=== PATIENT | female | born 1975 | race Caucasian/White ===

== ENCOUNTER 2018-03-07 11:48 | Emergency (ER) | payer OTHER ==
[2018-03-07 11:57] VITALS: BP 135/87
--- NOTE | 2018-03-07 12:27 | ED ---
ENT HPI - General Chief complaint: ENT Stated complaint: Foaming in the mouth Time Seen by Provider: 03/07/18 11:59 Source: patient, RN notes reviewed Mode of arrival: ambulatory Limitations: no limitations - History of Present Illness Initial comments: This is a 42-year-old female who presents to the emergency department with chief complaint of foaming in the mouth. Patient states that she attempted to use hydrogen peroxide [id number] as a mouthwash. She states that she used it only one time this morning. She states that she is concerned because there is now some foam in her mouth that she is unable to get rid of. She denies drinking any hydrogen peroxide. She states she is concerned because the [employer] video said to mix it with baking soda and she forgot to do so. Denies any recent illnesses. Denies fevers or chills, chest pain or shortness of breath, abdominal pain, nausea or vomiting, diarrhea or constipation, headache or dizziness. - Related Data Allergies Allergy/AdvReac Type Severity Reaction Status Date / Time No Known Allergies Allergy Verified 03/07/18 11:56 Review of Systems ROS Statement: Those systems with pertinent positive or pertinent negative responses have been documented in the HPI. ROS Other: All systems not noted in ROS Statement are negative. Past Medical History Past Medical History: No Reported History History of Any Multi-Drug Resistant Organisms: None Reported Past Surgical History: No Surgical Hx Reported Past Psychological History: Bipolar Smoking Status: Current every day smoker Past Alcohol Use History: None Reported Past Drug Use History: None Reported General Exam - General Exam Comments Initial Comments: General: Awake and alert, well-developed; in no apparent distress. HEENT: Head atraumatic, normocephalic. Pupils are equal, round and reactive to light. Extraocular movements intact. Oropharynx moist without erythema or exudate. Small amount of white foam within the mouth. Neck: Supple. Normal ROM. Cardiovascular: Regular rate and rhythm. No murmurs, rubs or gallops. Chest symmetrical. Respiratory: Lungs clear to auscultation bilaterally. No wheezes, rales or rhonchi. Normal respiratory effort with no use of accessory muscles. Musculoskeletal: Normal ROM, no tenderness bilateral upper and lower extremities. Ambulating normally. Skin: [place], warm and dry without rashes or lesions. Neurological: Alert and oriented x3. CN II-XII grossly intact. Speech is fluent and answers are appropriate. No focal neuro deficits. Limitations: no limitations Course Vital Signs 03/07/18 03/07/18 11:52 12:26 Temperature 100.2 F H 98.5 F Pulse Rate 104 H 82 Respiratory 18 16 Rate Blood Pressure 135/87 O2 Sat by Pulse 96 98 Oximetry Medical Decision Making - Medical Decision Making This is a 42-year-old female who presents to the emergency department with chief complaint of foaming in the mouth. Patient used hydrogen peroxide as mouthwash one time this morning. I explained to patient that this is normal for hydrogen peroxide as the foaming is caused by oxygen. Explained to patient that drinking some water or milk may help decrease the foaming. Patient was agreeable with this plan. Vital signs are stable and she is in no acute distress. She'll be discharged home at this time. All questions answered. Disposition Clinical Impression: Adverse effect of mouthwash Disposition: HOME SELF-CARE Condition: Good Instructions: Hydrogen Peroxide (By mouth) Additional Instructions: Please drink water or milk to help with the foaming. Please follow up with primary care provider within 1-2 days. Return to emergency department if symptoms should worsen or any concerns arise. Is patient prescribed a controlled substance at d/c from ED?: No Referrals: Mariam Segovia MD [Primary Care Provider] - 1-2 days Time of Disposition: 12:15
[2018-03-07 12:32] VITALS: PULSE 82; RESP 16; TEMP 98.5
== END 2018-03-07 12:38 | disposition home or self-care (01) ==
LOC: EC 11:48
DX: K11.7 Disturbances of salivary secretion (principal); T49.0X5A Adverse effect of local antifungal, anti-infective and anti-inflammatory drugs, initial encounter; F17.200 Nicotine dependence, unspecified, uncomplicated
CPT/HCPCS: 99283

== ENCOUNTER 2021-03-13 11:12 | Emergency (ER) | payer OTHER ==
--- NOTE | 2021-03-13 11:35 | ED ---
Lower Extremity Injury HPI - General Chief Complaint: Extremity Injury, Lower Stated Complaint: ankle injury Time Seen by Provider: 03/13/21 11:21 Source: patient, RN notes reviewed Mode of arrival: ambulatory Limitations: no limitations - History of Present Illness Initial Comments: 45-year-old female presents to the emergency Department with chief complaint left ankle injury. Patient states that she rolled her ankle yesterday was diagnosed with acute fracture. Patient states that she was seen at [facility]. Patient called the was takes provided and they told her that she could be seen in 3 weeks. Patient states that she needs to be seen sooner she did talk to office of Dr. Llanos is recommended come emergency dept here for evaluation and referral. Patient denies any paresthesias no other complaints. - Related Data Allergies Allergy/AdvReac Type Severity Reaction Status Date / Time No Known Allergies Allergy Verified 03/13/21 11:18 Review of Systems ROS Statement: Those systems with pertinent positive or pertinent negative responses have been documented in the HPI. ROS Other: All systems not noted in ROS Statement are negative. Past Medical History Past Medical History: No Reported History History of Any Multi-Drug Resistant Organisms: None Reported Past Surgical History: No Surgical Hx Reported Past Psychological History: Bipolar Smoking Status: Current every day smoker Past Alcohol Use History: None Reported Past Drug Use History: None Reported General Exam Limitations: no limitations General appearance: alert, in no apparent distress Neck exam: Present: normal inspection. Absent: tenderness Respiratory exam: Present: normal lung sounds bilaterally. Absent: respiratory distress, wheezes, rales, rhonchi, stridor Cardiovascular Exam: Present: regular rate, normal rhythm, normal heart sounds. Absent: systolic murmur, diastolic murmur, rubs, gallop, clicks Extremities exam: Present: other (left leg is wrapped in an OCL splint, told her exposed neurovascular intact I did unwrap the splint as she reportedly was tight, feels improved, tenderness the malleoli region) Course Vital Signs 03/13/21 11:15 Temperature 97.4 F L Pulse Rate 88 Respiratory 20 Rate Blood Pressure 161/87 O2 Sat by Pulse 99 Oximetry Medical Decision Making - Medical Decision Making X-rays review shows acute fracture. Patient will be referred to on-call orthopedics. Case discussed with neck on-call for orthopedics recommends CT nonweightbearing remain in splint and will follow-up tomorrow. Disposition Clinical Impression: Closed left trimalleolar fracture Disposition: HOME SELF-CARE Condition: Stable Instructions (If sedation given, give patient instructions): Ankle Fracture (ED) Additional Instructions: Please remain nonweightbearing and use crutches as directed.Please return to the Emergency Department if symptoms worsen or any other concerns. Is patient prescribed a controlled substance at d/c from ED?: No Referrals: Nonstaff,Physician [REFERRING] - 1-2 days Arden Mandel DO [Doctor of Osteopathic Medicine] - 1-2 days Time of Disposition: 12:33
--- NOTE | 2021-03-13 12:19 | XR ---
EXAMINATION TYPE: XR ankle complete LT DATE OF EXAM: 03/13/2021 COMPARISON: None HISTORY: Fracture TECHNIQUE: 3 view left ankle FINDINGS: Images are obtained through fiberglass and alignment. Ankle mortise is visualized appears intact. There is diastases of a medial malleolar fracture. The la teral fibular fracture appears comminuted. Posterior tibial fracture appears to be present with exten mike to the articular surface. Findings are compatible with a trimalleolar fracture. IMPRESSION: 1. Appears to be a trimalleolar fracture of the left ankle obtained through a fiberglass splint.
--- NOTE | 2021-03-13 13:16 | CT ---
EXAMINATION TYPE: CT ankle LT wo con DATE OF EXAM: 03/13/2021 COMPARISON: X-ray 03/13/2021 HISTORY: PT STATES SHE ROLLED HER ANKLE CT DLP: 237.5 mGycm Automated exposure control for dose reduction was used. CONTRAST: CT scan of the ankle FINDINGS- There is a comminuted displaced fracture of the distal fibula, medial malleolus are fractured, and co mminuted intra-articular fracture of the posterior malleolus and tibia. Slight asymmetry the ankle mo rtise noted. Visualized remaining osseous structures intact. Tiny cyst involving the dome of the talu s can be associated with osteochondritis. Soft tissue hematoma or edema noted. Ligamentous or tendino us injuries not excluded by CAT scan. IMPRESSION- 1. Comminuted trimalleolar fracture or articular of the ankle extensive soft tissue edema or hematoma . 2. Possible osteochondritis of the talar dome.
[2021-03-13 13:27] VITALS: RESP 18
[2021-03-13 13:44] VITALS: BP 139/74; PULSE 76; TEMP 98.4
== END 2021-03-13 13:44 | disposition home or self-care (01) ==
LOC: EC 11:12
DX: S82.852A Displaced trimalleolar fracture of left lower leg, initial encounter for closed fracture (principal); F17.200 Nicotine dependence, unspecified, uncomplicated; X50.1XXA Overexertion from prolonged static or awkward postures, initial encounter
CPT/HCPCS: 99284

== ENCOUNTER → 2021-03-17 | Outpatient (CLI) | payer OTHER ==
[2021-03-17 14:10] LABS: Anisocytosis Moderate; Basophils % (A) 0 %; Eosinophils % (A) 0 %; HCT 36.4 % (34.0-46.0); HGB 11.7 gm/dL (11.4-16.0); Hypochromasia Slight; Lymphocytes # (A) 1.3 k/uL (1.0-4.8); Lymphocytes % (A) 18 %; MCH 23.9 pg (25.0-35.0); MCHC 32.1 g/dL (31.0-37.0); MCV 74.4 fL (80.0-100.0); Mean Platelet Volume 8.8; Microcytosis Marked; Monocytes # (A) 0.3 k/uL (0-1.0); Monocytes % (A) 4 %; Neutrophils # (A) 5.4 k/uL (1.3-7.7); Neutrophils % (A) 76 %; Platelet Count 265 k/uL (150-450); RDW 21.3 % (11.5-15.5); WBC 7.2 k/uL (3.8-10.6)
== END | disposition home or self-care (01) ==
LOC: LABPAT 13:05
PROVIDERS: ATTEND Orthopaedic Surgery
DX: Z01.812 Encounter for preprocedural laboratory examination (principal)
CPT/HCPCS: 36415; 85025

== ENCOUNTER → 2021-03-28 | Day surgery (SDC) | payer OTHER ==
[2021-03-24 09:05] VITALS: BMI 35.3
[~2021-03-28] MED LIST: ACETAMINOPHEN TAB 500 MG TAB PO PRN; DEXAMETHASONE SOD PHOSPHATE 4 MG/ML 1 ML VIAL IV ONE; DEXAMETHASONE SOD PHOSPHATE 4 MG/ML 1 ML VIAL IVP ONE; DEXAMETHASONE SOD PHOSPHATE 4 MG/ML 1 ML VIAL ONE; HYDROcodone/APAP 5-325MG 1 EACH TAB ONE; HYDROcodone/APAP 5-325MG 1 EACH TAB PO ONE; HYDROmorphone (PF) 1 MG/ML ONE; HYDROmorphone 0.5 MG/0.5 ML SYRINGE IVP PRN; LACTATED RINGERS 1,000 ML IV ONE; LACTATED RINGERS 1,000 ML IV SCH; LIDOCAINE 1% (10MG/ML) FOR IV START INTRADERMA PRN; LIDOCAINE 1% INJ 10MG/ML (20 ML MDV) ONE; MIDAZOLAM 2 MG/2 ML VIAL IV PRN; MIDAZOLAM 2 MG/2 ML VIAL IVP ONE; MIDAZOLAM 2 MG/2 ML VIAL ONE; ONDANSETRON 4 MG/2 ML VIAL IVP PRN; PROPOFOL 10 MG/ML 20 ML VIAL IV ONE; ROPIVACAINE 5 MG/ML 30 ML VIAL ONE; SCOPOLAMINE 1.5MG/72HR PATCH TRANSDERM ONE; SUCCINYLCHOLINE CHLORIDE 100 MG/5 ML SYR IV ONE; ceFAZolin 1,000 MG in SODIUM CHLORIDE 0.9% 1,000 ML IRRIGATION ONE; fentaNYL (PF) 50 MCG/ML 2 ML AMP ONE
--- NOTE | 2021-03-28 07:05 | P.HPOR ---
History of Present Illness H&P Date: 03/28/21 Chief Complaint: AnkleFx [facility] History and Physical CC: I fell and broke her ankle HPI: 45-year-old female tripped getting out of her car causing fracture to her left ankle. She lives with her family at home and her significant olther in the room with her. She has had difficulty with crutches and so has been in a wheel chair and they are living in a hotel right now. She states pain in her L ankle. Swelling about her left ankle. Denies any numbness/tingling. Denies any f/c/sob/cp at this time. The patient's past medical history; past surgical history; family history; medicines; allergies and social history have been reviewed and are as stated elsewhere in the chart. 14 points review of systems completed and as stated in HPI, all other systems reviewed are negative. PHYSICAL EXAM: Patient is alert and oriented 3 appears well-nourished well-hydrated is in no acute distress. They does not appear septic. On exam the patient has no tenderness to palpation of her thoracic or lumbar spine. There is no edema or ballottement sign. Lower extremities with 5 out of 5 strength in all major muscle groups Upper extremities show 5/5 strength in all major muscle groups. There is FROM that is painless of the b/l UE and LE in all major joints. They are intact to light touch sensation in L2 to S1 nerve distribution. Patient has palpable dorsalis pedis was posterior tibial pulses. Compartments are soft and compressible. Patient shows a negative Homans, Ovalle's, negative Babinski's negative clonus bilaterally. negative straight leg raise bilaterally. No tensioning signs. Cranial nerves II through XII are grossly intact. Overall alignment is well-maintained in the sagittal coronal planes. left foot and ankle show a large amount of ecchymosis as well as swelling around the ankle and foot. There is no wrinkle sign at this time. There is tenderness to palpation around the medial lateral and posterior aspect of the ankle range of motion is limited secondary to the fracture. Palpable pulses and compartments are soft and compressive RADIOGRAPHS: ankle films demonstrate a trimalleolar fracture with comminuted Leo B type fracture of the lateral malleolus transverse medial malleolar fracture and a posterior malleolar fracture that is approximately 15-20% of the posterior malleolus. [place] stress view fails to demonstrate any medial clear space widening or tib-fib overlap decrease. No other obvious osseous abnormalities ASSESSMENT: 1. left ankle trimalleolar fracture PLAN: - we will schedule her for an ORIF of her left ankle Surgical Procedure Risk Review Lary Pagan is a 45 year old female presenting for evaluation of sudden onset of left ankle pain. It was my pleasure to have seen and examined Ms. Pagan. In our visit today we have had a chance to go over subjective complaints, physical examination findings and treatments, including the natural course history without intervention and various interventional options. The imaging demonstrates trimalleolar fracture, displaced, closed . On physical exam, Ms. Pagan demonstrates pain and swelling with ecchymosis of the left ankle . I explained to the patient that as her condition progresses it could cause continued pain and inability ambulate . At this time, based on the patients imaging and physical exam, I recommend surgery in the form or a: ORIF L ankle . I discussed the risk and benefits of this procedure at length with Ms. Pagan. The patient agreed to consider pursuing the procedure mentioned above. Plan: 1. Open reduction and internal fixation of the Left ankle fracture 2. Follow up with PCP for surgical clearance 3. Review of surgical risks and benefits as well as an educational packet on the proposed surgical procedure. Risks: All surgical procedures come with inherent risks, including those related to positioning, anesthesia, intraoperative findings, and postoperative complications. It is important to understand that surgery does not come with any guarantee of a successful outcome as complications and adverse events are always possible. The patient was given a handout in office today discussing the surgical procedure and risks associated with the intervention, both of which were discussed with the patient. These risks include but are not limited to the following: ? Experiencing same, different or even worse symptoms in back, neck, arms, or legs compared to before surgery. ? Requiring further surgery or other forms of treatment presently or at some time in the future at same or other levels of the intended spine surgery. ? On an extreme but fortunately relatively rare basis severe complication such as blindness, stroke, heart attack, temporary and/or permanent nerve injury, paralysis, coma, or may occur, sometimes without known explanation. ? Surgical complications may include but are not limited to risk of infection, fluid accumulation in the surgical dissection site, including a seroma or hematoma, that requires additional surgery, wound drainage, bleeding, new numbness or weakness, vision changes/loss, spinal fluid leakage, non-healing and/or infected incision, headaches, difficulty or inability to swallow, hoarseness, hemopneumothorax, pneumothorax, impotence, retrograde ejaculation, vaginal dryness; injury to nerves, spinal cord, blood vessels, lymphatics or other vital organs (i.e., bowel injury, injury to the great vessels); heterotopic bone formation; complications related to the hardware such as screws, rods, cages including misplaced hardware, device failure, instrumentation at the wrong spine level, hardware fracture/breakage, or hardware loosening; vertebral failure of the spinal column above or below the newly placed hardware; retained surgical instrumentations or devices and the need for further surgery. ? Medical risks of the planned spine surgery include but are not limited to generalized Infections to the whole body or local areas outside of the surgical site (sepsis), heart attack, bleeding, anaphylaxis, meningitis, seizure, epilepsy, hearing loss, burn eastman, laceration of the head or other areas of the body, bruising, hypersensitivity of the skin, bladder over distension; allergic reaction; shoulder injury related to positioning; fat, blood and air clots to other areas of the body like heart, lungs, brain; failure of internal organs such as lungs, kidneys, liver and excessive bleeding. If blood transfusions are necessary, note that transfusions may cause intolerance reactions such as anaphylaxis or other complex reactions. Despite best efforts, the results of spine surgery might not heal in terms of bone, soft tissues such as skin, fascia, ligaments, and joints. Additionally, in order to achieve best possible results, spine surgery may be carried out beyond the initially planned levels and involve decompression, fusion including insertion of hardware at levels other than the original intended area of surgical interest change some portions of the procedure in order to ensure the best possible outcomes. With spine surgery and spinal fusion, there are different off label uses of instrumentation (devices, implants and hardware) as well as biological substances (bone morphogenic proteins, demineralized bone matrix) as well as using extra bone from allograft sources (i.e. cadaver bone) or autograft (iliac crest bone, ribs, or the spine itself). The patient has been given information about these practices and their inherent risks and benefits. [facility] Physician Assistants are medically trained surgical providers who function in the outpatient, inpatient, and operating room setting under the direct supervision of the attending surgeon.They assist in the operating room with direct supervision of the attending surgeons. The patient has had a chance to review all the listed information, has been given print outs detailing this information, and has had all his/her questions answered to their satisfaction. It was my pleasure to have seen and examined Ms. Pagan. In our visit today we have had a chance to go over my understanding of our patient's current condition, the natural course history without intervention and various interventional options. Questions were invited and answered, and the patient wishes to proceed as outlined above. I have seen and examined the patient for 25 minutes and we have spent more than 50% of the time in repeat and detailed counseling about the patient's condition, its natural course history with out and as much as can be predicted with surgery and re-review of various surgical treatment options. In conclusion,Ms. Paagn and her spouse/partner requested we proceed with the above suggested surgery and are willing to accept risks and limitations of the suggested surgery as nature of the disease process and our best attempts at treatment for the condition. Thank you again for allowing us to be part of your patient's care. Please don't hesitate to contact me if you have any further questions. Signed and authenticated by: Arden Stacy [facility] [address] [place] [address] Past Medical History Past Medical History: No Reported History History of Any Multi-Drug Resistant Organisms: None Reported Past Surgical History: No Surgical Hx Reported Additional Past Surgical History / Comment(s): Lymph node biopsy. Past Anesthesia/Blood Transfusion Reactions: No Reported Reaction Past Psychological History: Schizophrenia Smoking Status: Current every day smoker Past Alcohol Use History: Rare Additional Past Alcohol Use History / Comment(s): Smokes 1/2 PPD X last 20 yrs. Past Drug Use History: Marijuana Additional Drug Use History / Comment(s): "Hasn't used marijuana in quite awhile." - Past Family History Mother Family Medical History: No Reported History Medications and Allergies Home Medications Medication Instructions Recorded Confirmed Type HYDROcodone/APAP 5-325MG [[place] [employer] 1 tab PO DIRECTED PRN 03/24/21 03/28/21 History 5-325] Allergies Allergy/AdvReac Type Severity Reaction Status Date / Time No Known Allergies Allergy Verified 03/28/21 07:00 Physical Examination Osteopathic Statement: *. No significant issues noted on an osteopathic structural exam other than those noted in the History and Physical/Consult.
--- NOTE | 2021-03-28 09:35 | XR ---
EXAMINATION TYPE: XR ankle limited LT DATE OF EXAM: 03/28/2021 CLINICAL HISTORY: ORIF left ankle TECHNIQUE: 11 fluoroscopic spot images of the left ankle were submitted for review. 55 seconds of flu oroscopy time was reported. COMPARISON: 03/13/2021 FINDINGS: Fibular and medial malleolar hardware are noted. For full details please see the surgical report. IMPRESSION: Fibular and medial malleolar hardware are noted. For full details please see the surgical report.
[2021-03-28 10:06] VITALS: TEMP 98
--- NOTE | 2021-03-28 10:10 | FL ---
Fluoroscopy INDICATION: Pain FINDINGS: Fluoroscopy time: 55 seconds. Images obtained: 11. IMPRESSIONS: 1. Documentation of fluoroscopy.
--- NOTE | 2021-03-28 10:19 | P.OP ---
Date of Procedure: 03/28/21 Preoperative Diagnosis: LEFT ankle trimalleolar fracture Postoperative Diagnosis: LEFT ankle trimalleolar fracture Procedure(s) Performed: Open reduction and internal fixation of Left trimalleolar ankle fracture Implants: Arthrex distal fibular plate x1 4.5 medial partially threaded screw Anesthesia: MAC, regional Surgeon: Arden Mandel [employer] Ground Worker #1: Rene Vickers (was present for the entire case and necessary due to the complexity of the case) Estimated Blood Loss (ml): 100 IV fluids (ml): 1,500 Urine output (ml): 0 Pathology: none sent Condition: stable Disposition: PACU Indications for Procedure: 45 yo female presented on follow up from ED with trimalleolar ankle fracture. We discussed conservative vs surgical optinos at length and she opted for surgical fixation. Risks and benefits were discussed at length the patient as well as her boyfriend. They are willing to proceed with the procedure. Operative Findings: Comminuted trimalleolar ankle fracture left Description of Procedure: The patient was seen and examined in the preoperative area. All preoperative protocols were followed. Informed consent was obtained risks and benefits of the procedure were discussed at length. Risks including bleeding infection damage to the surrounding tissue and risk of reoperation were discussed with the patient. Risk of anesthesia up to and including was a discussed with the patient. These are outlined in the risk reviewed. They were willing to accept these risks and all of the risks of surgery. The patient was given a weight- based dose of antibiotics in the form of 2 g Ancef IVPB 1. The patient was seen and evaluated by the anesthesia team who deemed them fit for surgery. The site was marked, the patient was willing to proceed with the procedure. The patient was transferred to the operative suite by the Department of anesthesia. There were then drifted off to sleep by the department of a nesthesia and regional with sedation LMA anesthesia was used. Once adequate anesthesia had been obtained the patient was carefully transferred to the operative bed. All bony prominences were padded accordingly. SCDs were placed on the nonoperative lower extremities. Arms were well padded. Left leg was exposed and placed on a bone foam and secured to the table bump was placed in the patient's left hip. Tourniquet was placed around patient's left upper thigh and secured 10:15 was placed around this. The remaining arms and legs were well padded and secured to the table. Preoperative briefing was done with the operative team and everyone was ready for the procedure to start. The patients left lower extremity was then prepped and draped in the normal sterile fashion. Timeout was then performed and all parties in agreement with the procedure to be performed. Esmarch was used for exsanguination tourniquet was inflated to 250 mmHg. Skin marker was used to wally out the profile of the fibula and the lateral side. Knife was used to incise skin blunt dissection was taken down to the fibular shaft and this was then cleaned of any callus and a wood handled elevator was used to elevate the muscles and tendons from this area. Once it was cleaned and mobilized a clamp was placed. This is somewhat of a stellate type fracture with an anterior fragment that was loose and a posterior fragment that was loose. We clamped together the 2 largest portions to get fibular length this was confirmed on fluoroscopic guidance. We then placed 2 pins A to P to hold the fracture in place and placed a new clamp [id number] to hold the fracture reduced. Then selected a plate and sized it and bent it to accommodate for her sharp lateral fibular cortex. We then confirmed it was in good position on AP and lateral after pinning it to the bone. We then started with distal screws and drilled unicortical distal locking screws through the guide. This was done under fluoroscopic guidance. Once they were placed in good position the distal pin was removed for then turned attention to shaft where we drilled one cortical screw to help reduce the fracture and septal the plate to the bone once this was in good position and had good bite were then drilled 2 more screws in a locking fashion around this to facilitate rigidity of this construct. The pins were then removed and the ankle was tested and was stable through motion and there was no fracture motion and there was stability on cotton test as well as external rotation stress test of the syndesmosis. We then turned our attention to the medial side incision was made in line with the tibial shaft and the medial malleolus. This was then taken with blunt dissection down to the medial malleolus fracture where a large portion of the deltoid ligament was interposed and this was removed and the fracture was irrigated and scraped. Dental pick was used to reduce the fracture were then placed a pen under AP and lateral fluo roscopic guidance with in the medial malleolar fracture perpendicular to the fracture site this is a very small piece and so only one pin was able to be placed safely within overdrilled and placed with 45 partially threaded screw which was able to reduce the fracture and hold it. We then irrigated the wounds copiously with normal sterile saline. We then took final images in AP and lateral fluoroscopically and confirmed good position fracture and it was holding. We did visualize a posterior malleolar fracture however was impacted and slightly comminuted and we felt that placing AP pins or even trying to reduce this would increase poor outcome and so we did not do this at this time. We then closed the wounds with 0 Vicryl 2-0 Vicryl and 2-0 nylon in the skin. We then sterilely cleaned the wounds and sterilely dressed with Adaptic 4 x 4 ABDs and web roll. The patient was then placed in well-padded well molded short leg cast on the left-hand side which then bivalved to allow for swelling and overwrapped with an Shaun wrap. The patient was then transferred back to their hospital bed. There were awakened by department of anesthesia having tolerated the procedure very well with no complications. The patient was then transported to the postoperative care unit in stable condition.
[2021-03-28 10:49] VITALS: RESP 17
[2021-03-28 11:17] VITALS: BP 147/80; PULSE 66
--- NOTE | 2021-03-30 18:54 | P.ANPRN ---
Procedure Note - Anesthesia - Nerve Block Performed Left Popliteal Single Date of Procedure: 03/28/21 Procedure Start Time: : Procedure Stop Time: : Location of Patient: PreOp Indication: Acute Post-Operative Pain, Requested by Surgeon Sedation Type: Sedate with meaningful contact maintained Preparation: Sterile Prep Position: Right Lateral Needle Types: Pajunk Needle Gauge: 21 Ultrasound used to visualize needle placement: Yes Ultrasound used to observe medication spread: Yes Blood Aspirated: No Pain Paresthesia on Injection Noted: No Resistance on Injection: Normal Image Stored and Saved: Yes Events: Uneventful and Well Tolerated (ropi .5% 20cc plus dexamethasone 4mg)
--- NOTE | 2021-03-30 18:55 | P.ANPRN ---
Procedure Note - Anesthesia - Nerve Block Performed Left Adductor Canal Single Date of Procedure: 03/28/21 Procedure Start Time: : Procedure Stop Time: : Location of Patient: PreOp Indication: Acute Post-Operative Pain, Requested by Surgeon Sedation Type: Sedate with meaningful contact maintained Preparation: Sterile Prep Position: Supine Needle Types: Pajunk Needle Gauge: 21 Ultrasound used to visualize needle placement: Yes Ultrasound used to observe medication spread: Yes Blood Aspirated: No Pain Paresthesia on Injection Noted: No Resistance on Injection: Normal Image Stored and Saved: Yes Events: Uneventful and Well Tolerated (ropi .5% 20cc)
--- NOTE | 2021-04-02 10:37 | CDI ---
the Outpatient Documentation Clarification Form the block was done at the posterior aspect of the knee to cover common peroneal and the tibial nerve to help post op pain control for the foot and ankle Date: 04/02/21 CDS/Burn Out Tender Lace Name: Mary Ellen Rodriguez Phone: If any questions, call Anju Padilla Replenisher at [phone] Patient Name: Lary Fiore Admit Date: 03/28/21 Discharge Date: 03/28/21 ATTENTION: The [facility] Coding Staff appreciate your assistance in clarifying documentation. Please respond to the clarification below the line at the bottom and electronically sign. The [facility] Coding staff will review the response and follow-up if needed. Please note: Queries are made part of the Legal Health Record. If you have any questions, please contact the Replenisher. Dear Dr. Genao, Please provide clarification as the exact location of the popliteal nerve block. Please refer to below: A popliteal block procedure note, without a description of the anatomy is not helpful in determining the correct code to report. A popliteal fossa injection is reported with CPT code 45463 (sciatic nerve), whereas a saphenous popliteal is reported with CPT code 56526 (other peripheral nerve block). Please clarify. Thank you for your kind consideration. MTDD
== END | disposition home or self-care (01) ==
LOC: OR 06:15
PROVIDERS: ATTEND Orthopaedic Surgery
DX: S82.852A Displaced trimalleolar fracture of left lower leg, initial encounter for closed fracture (principal); W01.0XXA Fall on same level from slipping, tripping and stumbling without subsequent striking against object, initial encounter; F17.210 Nicotine dependence, cigarettes, uncomplicated; F20.9 Schizophrenia, unspecified; Z98.890 Other specified postprocedural states
CPT/HCPCS: 27822; 64447; 81025; 64445; 76942; 73600; C1713 ×3; J2250; J1100; J0690 ×2; J2405; J2001; J3010; J1170; J2795; J0330; J2704

== ENCOUNTER 2023-10-27 12:37 | Emergency (ER) | payer OTHER ==
--- NOTE | 2023-10-27 15:12 | ED ---
Psych HPI - General Source: patient, family, RN notes reviewed Mode of arrival: ambulatory Limitations: no limitations <Elgin Perez - Last Filed: 10/27/23 15:11> <Ernie Currie - Last Filed: 10/27/23 19:10> - General Source: patient, family, RN notes reviewed Mode of arrival: ambulatory Limitations: no limitations <Rani Valerio - Last Filed: 10/28/23 00:55> - General Chief Complaint: Psychiatric Symptoms Stated Complaint: Mental Health Time Seen by Provider: 10/27/23 15:11 - History of Present Illness Initial Comments: 48-year-old female presents emergency department with chief complaint of needing psychiatric evaluation. Patient is here with family who states that she not been taking her medications. She is having worsening hallucinations, delusional thoughts. (Elgin Perez) This is a 48 year old female who presents to the emergency department for p sychiatric evaluation. Patient has a hx of schizophrenia and her cousin states that she has not been on any psychiatric medications in years, and she needs to restart something. They cannot recall what she used to take, however she was not compliant and they cannot force her to take anything. She is becoming paranoid that people in the house she lives at are trying to stalk her and she is becoming too difficult and aggressive for elderly family members to continue caring for. Her cousin states that she is also not bathing and her bedroom is a fire hazard. Patient denies any suicidal or homicidal ideations. Patient's cousin is petitioning the patient. (Rani Valerio) - Related Data Home Medications Medication Instructions Recorded Confirmed No Known Home Medications 10/27/23 10/27/23 Allergies Allergy/AdvReac Type Severity Reaction Status Date / Time No Known Allergies Allergy Verified 10/27/23 19:02 Review of Systems ROS Other: All systems not noted in ROS Statement are negative. <Elgin Perez - Last Filed: 10/27/23 15:11> ROS Other: All systems not noted in ROS Statement are negative. <Ernie Currie - Last Filed: 10/27/23 19:10> ROS Other: All systems not noted in ROS Statement are negative. <Rani Valerio - Last Filed: 01/25/24 00:55> ROS Statement: Those systems with pertinent positive or pertinent negative responses have been documented in the HPI. Past Medical History Past Medical History: No Reported History History of Any Multi-Drug Resistant Organisms: None Reported Past Surgical History: No Surgical Hx Reported Additional Past Surgical History / Comment(s): Lymph node biopsy. Past Anesthesia/Blood Transfusion Reactions: No Reported Reaction Past Psychological History: Schizophrenia Smoking Status: Current every day smoker Past Alcohol Use History: Rare Past Drug Use History: Marijuana - Past Family History Mother Family Medical History: No Reported History <Elgin Perez - Last Filed: 10/27/23 15:11> General Exam Limitations: no limitations <Elgin Perez - Last Filed: 10/27/23 15:11> Limitations: no limitations General appearance: alert, in no apparent distress Head exam: Present: atraumatic, normocephalic, normal inspection Respiratory exam: Present: normal lung sounds bilaterally. Absent: respiratory distress, wheezes, rales, rhonchi, stridor Cardiovascular Exam: Present: regular rate, normal rhythm, normal heart sounds. Absent: systolic murmur, diastolic murmur, rubs, gallop, clicks Neurological exam: Present: alert, oriented X3, CN II-XII intact Psychiatric exam: Present: normal affect, normal mood. Absent: homicidal ideation, suicidal ideation Expanded Focused psych exam: Present: paranoid Skin exam: Present: warm, dry, intact, normal color. Absent: rash <Rani Valerio - Last Filed: 10/28/23 00:55> - General Exam Comments Initial Comments: Visual Physical Exam Vital signs reviewed General: Well-appearing, nontoxic, no acute distress. Head: Normocephalic, atraumatic Eyes: PERRLA, EOMI ENT: Airway patent Chest: Nonlabored breathing Skin: No visual rash, normal skin tone Neuro: Alert and oriented 3 Musculoskeletal: No gross abnormalities (Elgin Perez) Course <Ernie Currie - Last Filed: 10/27/23 19:10> Vital Signs 10/27/23 10/28/23 12:52 00:00 Temperature 98.1 F Pulse Rate 102 H 74 Respiratory 18 18 Rate Blood Pressure 155/101 154/89 O2 Sat by Pulse 97 99 Oximetry - Reevaluation(s) Reevaluation #1: 10/27/23 19:10 I was able to evaluate this patient and feel she will require inpatient psychiatric care. I completed a clinical certification. (Ernie Currie) Medical Decision Making <Elgin Perez - Last Filed: 10/27/23 15:11> - Lab Data Result diagrams: 10/27/23 16:33 10/27/23 16:33 <Ernie Currie - Last Filed: 10/27/23 19:10> - Lab Data Result diagrams: 10/27/23 16:33 10/27/23 16:33 <Rani Valerio - Last Filed: 10/28/23 00:55> - Medical Decision Making I completed the quick note portion of this chart signed Elgin Perez PA-C (Elgin Perez) This is a 48 year old female who presents to the emergency department for psychiatric evaluation. Was pt. sent in by a medical professional or institution? @ -No Did you speak to anyone other than the patient for history? @ -Her cousin provided the majority of the history. Did you review nursing and triage notes? @ -Yes, and I agree, it is accurate with regards to the patient's symptoms. Were old charts reviewed? @ -No Differential Diagnosis? @ -Differential Mental Health: Depression, anxiety, bipolar, psychosis, schizophrenia, borderline personality, situational depression, adjustment disorder, behavioral disorder, brain tumor, malingering, substance abuse, encephalopathy, medication reaction, dementia, hypothyroidism, degenerative neurologic disorder, lupus.... This is not meant to be all-inclusive list EKG interpreted by me (3pts min.)? @ -Not obtained X-rays interpreted by me (1pt min.)? @ -Not obtained CT interpreted by me (1pt min.)? @ -Not obtained U/S interpreted by me (1pt. min.)? @ -Not obtained What testing was considered but not performed? (CT, X-rays, U/S, labs)? Why? @ -None What meds were considered but not given? Why? @ -None Did you discuss the management of the patient with other professionals? @ -Yes, EPS, who advised that the patient meets criteria for inpatient psychiatric treatment, however the beds at this facility are full and she will need to be transferred out. Did you reconcile home meds? @ -No Was smoking cessation discussed for >3mins.? @ -I discussed smoking cessation for greater than 3 minutes. The risk of smoking were discussed with the patient including but not limited to risks of cancer, stroke, coronary artery disease and COPD. Also discussed with patient were multiple methods of quitting smoking. Lastly we discussed the financial cost of smoking. Was critical care preformed (if so, how long)? @ -No Were there social determinants of health that impacted care today? How? (Homelessness, low income, unemployed, alcoholism, drug addiction, transportation, low edu. Level, literacy, decrease access to med. care, [facility], rehab)? @ -No Was there de-escalation of care discussed even if they declined? (Discuss DNR or withdrawal of care, Hospice)? @ -No What co-morbidities impacted this encounter? (DM, HTN, Smoking, COPD, CAD, Cancer, CVA, Hep., AIDS, mental health diagnosis, sleep apnea, morbid obesity)? @ -Schizophrenia Was patient admitted / discharged? @ -Patient's BAT was zero and she was cleared for EPS evaluation. Petition was filled out by the patient's cousin. EPS determined the patient to meet inpatient psychiatric admission criteria due to the active paranoia and hallucinations. All of the beds at this facility are full and the patient will be transferred out for psychiatric care. Multiple facilities were contacted, and [facility] accepted the patient for transfer. This will be an involuntary admission and the clinical certification was filled out by ED attending, Dr. Currie. Undiagnosed new problem with uncertain prognosis? @ -None Drug Therapy requiring intensive monitoring for toxicity (Heparin, Nitro, Insulin, Cardizem)? @ -None Were any procedures done? @ -None Diagnosis/symptom? @ -Psychosis Acute, or Chronic, or Acute on Chronic? @ -Acute Uncomplicated (without systemic symptoms) or Complicated (systemic symptoms)? @ -Complicated Side effects of treatment? @ -None Exacerbation, Progression, or Severe Exacerbation] @ -Not applicable Poses a threat to life or bodily function? @ -Yes This case was discussed in detail with the attending ED physician, Dr. Currie. Presentation, findings, and treatment plan discussed in detail as well. (Rani Valerio) - Lab Data Lab Results 01/24/24 01/24/24 01/24/24 Range/Units 16:33 16:33 16:33 WBC 7.5 (3.8-10.6) k/uL RBC 5.42 H (3.80-5.40) m/uL Hgb 15.8 (11.4-16.0) gm/dL Hct 49.1 H (34.0-46.0) % MCV 90.5 (80.0-100.0) fL MCH 29.2 (25.0-35.0) pg MCHC 32.3 (31.0-37.0) g/dL RDW 14.8 (11.5-15.5) % Plt Count 216 (150-450) k/uL MPV 10.3 Neutrophils % 79 % Lymphocytes % 16 % Monocytes % 3 % Eosinophils % 1 % Basophils % 0 % Neutrophils # 5.9 (1.3-7.7) k/uL Lymphocytes # 1.2 (1.0-4.8) k/uL Monocytes # 0.3 (0-1.0) k/uL Eosinophils # 0.1 (0-0.7) k/uL Basophils # 0.0 (0-0.2) k/uL Sodium 139 (137-145) mmol/L Potassium 4.8 (3.5-5.1) mmol/L Chloride 109 H (98-107) mmol/L Carbon Dioxide 18 L (22-30) mmol/L Anion Gap 12 mmol/L BUN 11 (7-17) mg/dL Creatinine 0.55 (0.52-1.04) mg/dL Est GFR (CKD-EPI)AfAm >90 (>60 ml/min/1.73 sqM) Est GFR (CKD-EPI)NonAf >90 (>60 ml/min/1.73 sqM) Glucose 142 H (74-99) mg/dL Calcium 9.3 (8.4-10.2) mg/dL Total Bilirubin 0.5 (0.2-1.3) mg/dL AST 28 (14-36) U/L ALT 32 (4-34) U/L Alkaline Phosphatase 112 (38-126) U/L Total Protein 7.8 (6.3-8.2) g/dL Albumin 4.8 (3.5-5.0) g/dL Urine Color Light Yellow Urine Appearance Clear (Clear) Urine pH 6.5 (5.0-8.0) Ur Specific Whittaker 1.016 (1.001-1.035) Urine Protein Negative (Negative) Urine Glucose (UA) Negative (Negative) Urine Ketones Negative (Negative) Urine Blood Small H (Negative) Urine Nitrite Negative (Negative) Urine Bilirubin Negative (Negative) Urine Urobilinogen <2.0 (<2.0) mg/dL Ur Leukocyte Esterase Moderate H (Negative) Urine RBC 4 (0-5) /hpf Urine WBC 4 (0-5) /hpf Ur Squamous Epith Cells 2 (0-4) /hpf Hyaline Casts 1 (0-2) /lpf Urine Mucus Rare H (None) /hpf Urine Opiates Screen Not Detected (NotDetected) Ur Oxycodone Screen Not Detected (NotDetected) Urine Methadone Screen Not Detected (NotDetected) Ur Barbiturates Screen Not Detected (NotDetected) U Tricyclic Antidepress Not Detected (NotDetected) Ur Phencyclidine Scrn Not Detected (NotDetected) Ur Amphetamines Screen Not Detected (NotDetected) U Methamphetamines Scrn Not Detected (NotDetected) U Benzodiazepines Scrn Not Detected (NotDetected) Urine Cocaine Screen Not Detected (NotDetected) U Marijuana (THC) Screen Not Detected (NotDetected) SARS-CoV-2 (PCR) (Not Detectd) 10/27/23 Range/Units 16:33 WBC (3.8-10.6) k/uL RBC (3.80-5.40) m/uL Hgb (11.4-16.0) gm/dL Hct (34.0-46.0) % MCV (80.0-100.0) fL MCH (25.0-35.0) pg MCHC (31.0-37.0) g/dL RDW (11.5-15.5) % Plt Count (150-450) k/uL MPV Neutrophils % % Lymphocytes % % Monocytes % % Eosinophils % % Basophils % % Neutrophils # (1.3-7.7) k/uL Lymphocytes # (1.0-4.8) k/uL Monocytes # (0-1.0) k/uL Eosinophils # (0-0.7) k/uL Basophils # (0-0.2) k/uL Sodium (137-145) mmol/L Potassium (3.5-5.1) mmol/L Chloride (98-107) mmol/L Carbon Dioxide (22-30) mmol/L Anion Gap mmol/L BUN (7-17) mg/dL Creatinine (0.52-1.04) mg/dL Est GFR (CKD-EPI)AfAm (>60 ml/min/1.73 sqM) Est GFR (CKD-EPI)NonAf (>60 ml/min/1.73 sqM) Glucose (74-99) mg/dL Calcium (8.4-10.2) mg/dL Total Bilirubin (0.2-1.3) mg/dL AST (14-36) U/L ALT (4-34) U/L Alkaline Phosphatase (38-126) U/L Total Protein (6.3-8.2) g/dL Albumin (3.5-5.0) g/dL Urine Color Urine Appearance (Clear) Urine pH (5.0-8.0) Ur Specific Whittaker (1.001-1.035) Urine Protein (Negative) Urine Glucose (UA) (Negative) Urine Ketones (Negative) Urine Blood (Negative) Urine Nitrite (Negative) Urine Bilirubin (Negative) Urine Urobilinogen (<2.0) mg/dL Ur Leukocyte Esterase (Negative) Urine RBC (0-5) /hpf Urine WBC (0-5) /hpf Ur Squamous Epith Cells (0-4) /hpf Hyaline Casts (0-2) /lpf Urine Mucus (None) /hpf Urine Opiates Screen (NotDetected) Ur Oxycodone Screen (NotDetected) Urine Methadone Screen (NotDetected) Ur Barbiturates Screen (NotDetected) U Tricyclic Antidepress (NotDetected) Ur Phencyclidine Scrn (NotDetected) Ur Amphetamines Screen (NotDetected) U Methamphetamines Scrn (NotDetected) U Benzodiazepines Scrn (NotDetected) Urine Cocaine Screen (NotDetected) U Marijuana (THC) Screen (NotDetected) SARS-CoV-2 (PCR) Not Detected (Not Detectd) Disposition <Elgin Perez M - Last Filed: 10/27/23 15:11> <Ernie Currie - Last Filed: 10/27/23 19:10> Time of Disposition: 19:00 <Rani Valerio - Last Filed: 10/28/23 00:55> Clinical Impression: Acute psychosis Disposition: TRANSFER TO PSYCH HOSP/UNIT Referrals: None,Stated [Primary Care Provider] - 1-2 days
[2023-10-27 16:58] LABS: Basophils % (A) 0 %; Eosinophils # (A) 0.1 k/uL (0-0.7); Eosinophils % (A) 1 %; HCT 49.1 % (34.0-46.0); HGB 15.8 gm/dL (11.4-16.0); Lymphocytes # (A) 1.2 k/uL (1.0-4.8); Lymphocytes % (A) 16 %; MCH 29.2 pg (25.0-35.0); MCHC 32.3 g/dL (31.0-37.0); MCV 90.5 fL (80.0-100.0); Mean Platelet Volume 10.3; Monocytes # (A) 0.3 k/uL (0-1.0); Monocytes % (A) 3 %; Neutrophils # (A) 5.9 k/uL (1.3-7.7); Neutrophils % (A) 79 %; Platelet Count 216 k/uL (150-450); RBC 5.42 m/uL (3.80-5.40); RDW 14.8 % (11.5-15.5); WBC 7.5 k/uL (3.8-10.6)
[2023-10-27 17:05] LABS: ALT 32 U/L (4-34); African American GFR (CKD) >90 (>60 ml/min/1.73 sqM); Albumin 4.8 g/dL (3.5-5.0); Anion Gap 12 mmol/L; Blood Urea Nitrogen 11 mg/dL (7-17); Calcium 9.3 mg/dL (8.4-10.2); Carbon Dioxide 18 mmol/L (22-30); Chloride 109 mmol/L (98-107); Glucose 142 mg/dL (74-99); Non-African American GFR(CKD) >90 (>60 ml/min/1.73 sqM); Sodium 139 mmol/L (137-145); Total Bilirubin 0.5 mg/dL (0.2-1.3); Total Protein 7.8 g/dL (6.3-8.2)
[2023-10-27 17:17] LABS: AST 28 U/L (14-36); Alkaline Phosphatase 112 U/L (38-126)
[2023-10-27 17:32] LABS: Appearance,Urine Clear (Clear); Bilirubin,Urine Negative (Negative); Blood,Urine Small (Negative); Color,Urine Light Yellow; Glucose,Urine (UA) Negative (Negative); Hyaline Casts,Urine 1 /lpf (0-2); Ketones,Urine Negative (Negative); Leukocyte Esterase,Urine Moderate (Negative); Mucus,Urine Rare /hpf; Nitrite,Urine Negative (Negative); PH, Urine 6.5 (5.0-8.0); Protein,Urine Negative (Negative); RBC,Urine 4 /hpf (0-5); Specific Gravity,Urine 1.016 (1.001-1.035); Squamous Epithelial Cell,Urine 2 /hpf (0-4); Urobilinogen,Urine <2.0 mg/dL (<2.0); WBC,Urine 4 /hpf (0-5)
[2023-10-27 17:34] LABS: Amphetamine Screen,Urine Not Detected (NotDetected); Barbiturate Screen,Urine Not Detected (NotDetected); Benzodiazepines Screen,Urine Not Detected (NotDetected); Cocaine Screen,Urine Not Detected (NotDetected); Methadone Screen, Urine Not Detected (NotDetected); Opiate Screen,Urine Not Detected (NotDetected); Oxycodone Screen, Urine Not Detected (NotDetected); Phencyclidine Screen,Urine Not Detected (NotDetected); Tricyclic Antidepressant,Urine Not Detected (NotDetected); Urn Cannabinoid Scrn Not Detected (NotDetected)
[2023-10-27 18:07] LABS: Potassium 4.8 mmol/L (3.5-5.1)
[2023-10-28 09:12] VITALS: BP 152/87; PULSE 76; RESP 16; TEMP 98.2
== END 2023-10-28 08:25 ==
LOC: EC 12:37
DX: F23 Brief psychotic disorder (principal); F17.210 Nicotine dependence, cigarettes, uncomplicated; F12.90 Cannabis use, unspecified, uncomplicated; Z20.822 Contact with and (suspected) exposure to COVID-19
CPT/HCPCS: 36415; 80053; 80306; 81001; 81025; 82075; 85025; 87635; 99285; 99406

== ENCOUNTER 2025-02-09 21:54 | Inpatient (IN) | payer MEDICAID, OTHER ==
--- NOTE | 2025-02-09 22:34 | ED ---
Recheck HPI - General Chief Complaint: Recheck/Abnormal Lab/Rx Stated Complaint: Hypertension Time Seen by Provider: 02/09/25 22:03 Source: patient, EMS, RN notes reviewed Mode of arrival: EMS Limitations: no limitations - History of Present Illness Initial Comments: This is a 49-year-old female with a history of paranoid schizophrenia presenting to the emergency department via EMS with multiple complaints. Patient noticed that her blood pressure is elevated and is presenting for further evaluation. She denies chest pain, headaches, visual disturbances, difficulty breathing, heart palpitations, peripheral edema. States that she does not take medications for her blood pressure. Additionally, patient is present with her cousin stating that she has been having fluctuating moods and paranoia. Patient has not been taking any psychiatric medications in years and that she needs to restart her medications. Patient is noncompliant. Patient denies suicidal homicidal ideation. Patient's cousin is petitioning the patient. - Related Data Home Medications Medication Instructions Recorded Confirmed No Known Home Medications 10/27/23 10/27/23 Allergies Allergy/AdvReac Type Severity Reaction Status Date / Time No Known Allergies Allergy Verified 02/09/25 22:03 Review of Systems ROS Statement: Those systems with pertinent positive or pertinent negative responses have been documented in the HPI. ROS Other: All systems not noted in ROS Statement are negative. Past Medical History Past Medical History: Hypertension History of Any Multi-Drug Resistant Organisms: None Reported Past Surgical History: No Surgical Hx Reported Additional Past Surgical History / Comment(s): Lymph node biopsy. Past Anesthesia/Blood Transfusion Reactions: No Reported Reaction Past Psychological History: Schizophrenia Smoking Status: Current every day smoker Past Alcohol Use History: Rare Past Drug Use History: Marijuana - Past Family History Mother Family Medical History: No Reported History General Exam Limitations: no limitations General appearance: alert, in no apparent distress ENT exam: Present: normal exam, mucous membranes moist Neck exam: Present: normal inspection. Absent: tenderness, meningismus, lymphadenopathy Respiratory exam: Present: normal lung sounds bilaterally. Absent: respiratory distress, wheezes, rales, rhonchi, stridor Cardiovascular Exam: Present: regular rate, normal rhythm, normal heart sounds. Absent: systolic murmur, diastolic murmur, rubs, gallop, clicks GI/Abdominal exam: Present: soft, normal bowel sounds. Absent: distended, tenderness, guarding, rebound, rigid Psychiatric exam: Present: flat affect. Absent: normal affect, anxious, manic, homicidal ideation, suicidal ideation Course Vital Signs 02/09/25 02/09/25 02/09/25 21:56 22:56 23:18 Temperature Pulse Rate 81 95 103 H Pulse Rate [ Left] Pulse Rate [ Right] Respiratory 18 20 20 Rate Blood Pressure 221/112 219/98 209/105 Blood Pressure [Left Arm] Blood Pressure [Right Arm] O2 Sat by Pulse 98 98 98 Oximetry 02/09/25 02/10/25 02/10/25 23:36 01:53 02:00 Temperature Pulse Rate 84 75 86 Pulse Rate [ Left] Pulse Rate [ Right] Respiratory 18 18 18 Rate Blood Pressure 199/95 175/97 166/84 Blood Pressure [Left Arm] Blood Pressure [Right Arm] O2 Sat by Pulse 98 99 98 Oximetry 02/10/25 02/10/25 02/10/25 04:00 05:00 05:55 Temperature 97.6 F Pulse Rate 76 79 Pulse Rate [ 85 Left] Pulse Rate [ 77 Right] Respiratory 18 18 16 Rate Blood Pressure 147/75 140/82 Blood Pressure 175/109 [Left Arm] Blood Pressure 170/104 [Right Arm] O2 Sat by Pulse 97 98 98 Oximetry Medical Decision Making - Medical Decision Making Was pt. sent in by a medical professional or institution ([facility] Leo, COMMUNICATIONS SYSTEMS ENGINEER, urgent care, hospital, or assisted...) When possible be specific @ -No Did you speak to anyone other than the patient for history (EMS, parent, family, police, friend...)? What history was obtained from this source @ -No Did you review nursing and triage notes (agree or disagree)? Why? @ -I reviewed and agree with nursing and triage notes Were old charts reviewed (outside hosp., previous admission, EMS record, old EKG, old radiological studies, urgent care reports/EKG's, assisted records)? Report findings @ -No old charts were reviewed Differential Diagnosis (chest pain, altered mental status, abdominal pain women, abdominal pain men, vaginal bleeding, weakness, fever, dyspnea, syncope, headache, dizziness, GI bleed, back pain, seizure, CVA, palpatations, mental health, musculoskeletal)? @ -Differential Mental Health Depression, anxiety, bipolar, psychosis, schizophrenia, borderline personality, situational depression, adjustment disorder, behavioral disorder, brain tumor, malingering, substance abuse, encephalopathy, medication reaction, dementia, hypothyroidism, degenerative neurologic disorder, lupus.... This is not meant to be all-inclusive list EKG interpreted by me (3pts min.). @ -Completed at 2256 sinus rhythm with a ventricular rate of 87, [place] interval 114, QRS 88, QT 375, QTc 420. X-rays interpreted by me (1pt min.). @ -None done CT interpreted by me (1pt min.). @ -None done U/S interpreted by me (1pt. min.). @ -None done What testing was considered but not performed or refused? (CT, X-rays, U/S, labs)? Why? @ -None What meds were considered but not given or refused? Why? @ -None Did you discuss the management of the patient with other professionals (professionals i.e. , PA, COMMUNICATIONS SYSTEMS ENGINEER, lab, RT, psych nurse, public health social worker, apparel cutter, teacher, guest relation officer, case work aide)? Give summary @ -Spoke with EPS nurse who spoke with psychiatrist department the patient be admitted for further evaluation. Was smoking cessation discussed for >3mins.? @ -No Was critical care preformed (if so, how long)? @ -No Were there social determinants of health that impacted care today? How? (Ho melessness, low income, unemployed, alcoholism, drug addiction, transportation, low edu. Level, literacy, decrease access to med. care, [place] [facility], rehab)? @ -No Was there de-escalation of care discussed even if they declined (Discuss DNR or withdrawal of care, Hospice)? DNR status @ -No What co-morbidities impacted this encounter? (DM, HTN, Smoking, COPD, CAD, Cancer, CVA, ARF, Chemo, Hep., AIDS, mental health diagnosis, sleep apnea, morbid obesity)? @ -None Was patient admitted / discharged? Hospital course, mention meds given and route, prescriptions, significant lab abnormalities, going to OR and other pertinent info. @ -Mental health admission. 49-year-old female present Emergency Department via EMS for complaints of hypertension and prior mental health admission. Patient is hypertensive on arrival with a blood pressure of 221/112. Patient is asymptomatic. EKG sinus rhythm. Patient provided with dose of hydralazine. CBC, CMP, troponin unremarkable. Patient's urine reveals positive nitrites with blood cells however patient not experiencing urinary symptoms and therefore urine is sent for culture. Urine toxicology is positive for marijuana. Patient is cleared for EPS evaluation. Patient will be admitted to mental health services with concern for paranoid schizophrenia. Case discussed with Dr. Ramires. Additionally, patient is provided with second dose of hydralazine which has successfully lower blood pressure well to a acceptable range. case discussed with Dr. Ramires Undiagnosed new problem with uncertain prognosis? @ -No Drug Therapy requiring intensive monitoring for toxicity (Heparin, Nitro, Insulin, Cardizem)? @ -No Were any procedures done? @ -No Diagnosis/symptom? @ -Hypertension, paranoid schizoprehnia Acute, or Chronic, or Acute on Chronic? @ -Acute Uncomplicated (without systemic symptoms) or Complicated (systemic symptoms)? @ -Complicated Side effects of treatment? @ -No Exacerbation, Progression, or Severe Exacerbation? @ -No Poses a threat to life or bodily function? How? (Chest pain, [place], IA, pneumonia, PE, COPD, DKA, ARF, appy, cholecystitis, CVA, Diverticulitis, Homicidal, Suicidal, threat to staff... and all critical care pts) @ -yes - Lab Data Result diagrams: 02/09/25 23:03 02/09/25 23:03 Lab Results 02/09/25 02/09/25 02/09/25 Range/Units 23:03 23:03 23:03 WBC 5.84 (4.50-10.00) 10*3/uL RBC 5.00 (4.10-5.20) 10*6/uL Hgb 14.5 (12.0-15.0) g/dL Hct 43.7 (37.2-46.3) % MCV 87.4 (80.0-97.0) fL MCH 29.0 (27.0-32.0) pg MCHC 33.2 (32.0-37.0) g/dL Plt Count 233 (140-440) 10*3/uL MPV 11.6 (9.5-12.2) fL Immature Gran % (Auto) 0.2 % Neutrophils % 64.5 % Lymphocytes % 24.1 % Monocytes % 8.6 % Eosinophils % 2.1 % Basophils % 0.5 % Immature Gran # 0.01 (0.00-0.04) 10*3/uL Neutrophils # 3.77 (1.80-7.70) 10*3/uL Lymphocytes # 1.41 (0.90-5.00) 10*3/uL Monocytes # 0.50 (0.20-1.00) 10*3/uL Eosinophils # 0.12 (0.04-0.35) 10*3/uL Basophils # 0.03 (0.00-0.10) 10*3/uL Sodium 138 (137-145) mmol/L Potassium 4.2 (3.5-5.1) mmol/L Chloride 105 (98-107) mmol/L Carbon Dioxide 26 (22-30) mmol/L Anion Gap 7 mmol/L BUN 8 (7-17) mg/dL Creatinine 0.57 (0.52-1.04) mg/dL Est GFR (CKD-EPI)AfAm >90 (>60 ml/min/1.73 sqM) Est GFR (CKD-EPI)NonAf >90 (>60 ml/min/1.73 sqM) Glucose 120 H (74-99) mg/dL Calcium 10.0 (8.4-10.2) mg/dL Magnesium 2.0 (1.6-2.3) mg/dL Total Bilirubin 0.4 (0.2-1.3) mg/dL AST 23 (14-36) U/L ALT 25 (4-34) U/L Alkaline Phosphatase 134 H (38-126) U/L Troponin I <0.012 (0.000-0.034) ng/mL Total Protein 7.0 (6.3-8.2) g/dL Albumin 4.4 (3.5-5.0) g/dL TSH (0.465-4.680) mIU/L Urine Color Urine Appearance (Clear) Urine pH (5.0-8.0) Ur Specific [place] (1.001-1.035) Urine Protein (Negative) Urine Glucose (UA) (Negative) Urine Ketones (Negative) Urine Blood (Negative) Urine Nitrite (Negative) Urine Bilirubin (Negative) Urine Urobilinogen (<2.0) mg/dL Ur Leukocyte Esterase (Negative) Urine RBC (0-5) /hpf Urine WBC (0-5) /hpf Ur Squamous Epith Cells (0-4) /hpf Calcium Oxalate Crystal (None) /hpf Urine Bacteria (None) /hpf Urine Mucus (None) /hpf Urine Opiates Screen (NotDetected) Ur Oxycodone Screen (NotDetected) Urine Methadone Screen (NotDetected) Ur Barbiturates Screen (NotDetected) U Tricyclic Antidepress (NotDetected) Ur Phencyclidine Scrn (NotDetected) Ur Amphetamines Screen (NotDetected) U Methamphetamines Scrn (NotDetected) U Benzodiazepines Scrn (NotDetected) Urine Cocaine Screen (NotDetected) U Marijuana (THC) Screen (NotDetected) SARS-CoV-2 (PCR) (Not Detectd) 02/09/25 02/09/25 02/09/25 Range/Units 23:03 23:17 23:17 WBC (4.50-10.00) 10*3/uL RBC (4.10-5.20) 10*6/uL Hgb (12.0-15.0) g/dL Hct (37.2-46.3) % MCV (80.0-97.0) fL MCH (27.0-32.0) pg MCHC (32.0-37.0) g/dL Plt Count (140-440) 10*3/uL MPV (9.5-12.2) fL Immature Gran % (Auto) % Neutrophils % % Lymphocytes % % Monocytes % % Eosinophils % % Basophils % % Immature Gran # (0.00-0.04) 10*3/uL Neutrophils # (1.80-7.70) 10*3/uL Lymphocytes # (0.90-5.00) 10*3/uL Monocytes # (0.20-1.00) 10*3/uL Eosinophils # (0.04-0.35) 10*3/uL Basophils # (0.00-0.10) 10*3/uL Sodium (137-145) mmol/L Potassium (3.5-5.1) mmol/L Chloride (98-107) mmol/L Carbon Dioxide (22-30) mmol/L Anion Gap mmol/L BUN (7-17) mg/dL Creatinine (0.52-1.04) mg/dL Est GFR (CKD-EPI)AfAm (>60 ml/min/1.73 sqM) Est GFR (CKD-EPI)NonAf (>60 ml/min/1.73 sqM) Glucose (74-99) mg/dL Calcium (8.4-10.2) mg/dL Magnesium (1.6-2.3) mg/dL Total Bilirubin (0.2-1.3) mg/dL AST (14-36) U/L ALT (4-34) U/L Alkaline Phosphatase (38-126) U/L Troponin I (0.000-0.034) ng/mL Total Protein (6.3-8.2) g/dL Albumin (3.5-5.0) g/dL TSH 3.660 (0.465-4.680) mIU/L Urine Color Yellow Urine Appearance Cloudy H (Clear) Urine pH 6.0 (5.0-8.0) Ur Specific [place] 1.018 (1.001-1.035) Urine Protein Negative (Negative) Urine Glucose (UA) Negative (Negative) Urine Ketones Negative (Negative) Urine Blood Negative (Negative) Urine Nitrite Positive H (Negative) Urine Bilirubin Negative (Negative) Urine Urobilinogen 2.0 (<2.0) mg/dL Ur Leukocyte Esterase Small H (Negative) Urine RBC 30 H (0-5) /hpf Urine WBC 15 H (0-5) /hpf Ur Squamous Epith Cells 2 (0-4) /hpf Calcium Oxalate Crystal Occasional H (None) /hpf Urine Bacteria Occasional H (None) /hpf Urine Mucus Rare H (None) /hpf Urine Opiates Screen Not Detected (NotDetected) Ur Oxycodone Screen Not Detected (NotDetected) Urine Methadone Screen Not Detected (NotDetected) Ur Barbiturates Screen Not Detected (NotDetected) U Tricyclic Antidepress Not Detected (NotDetected) Ur Phencyclidine Scrn Not Detected (NotDetected) Ur Amphetamines Screen Not Detected (NotDetected) U Methamphetamines Scrn Not Detected (NotDetected) U Benzodiazepines Scrn Not Detected (NotDetected) Urine Cocaine Screen Not Detected (NotDetected) U Marijuana (THC) Screen Detected H (NotDetected) SARS-CoV-2 (PCR) (Not Detectd) 02/10/25 Range/Units 01:55 WBC (4.50-10.00) 10*3/uL RBC (4.10-5.20) 10*6/uL Hgb (12.0-15.0) g/dL Hct (37.2-46.3) % MCV (80.0-97.0) fL MCH (27.0-32.0) pg MCHC (32.0-37.0) g/dL Plt Count (140-440) 10*3/uL MPV (9.5-12.2) fL Immature Gran % (Auto) % Neutrophils % % Lymphocytes % % Monocytes % % Eosinophils % % Basophils % % Immature Gran # (0.00-0.04) 10*3/uL Neutrophils # (1.80-7.70) 10*3/uL Lymphocytes # (0.90-5.00) 10*3/uL Monocytes # (0.20-1.00) 10*3/uL Eosinophils # (0.04-0.35) 10*3/uL Basophils # (0.00-0.10) 10*3/uL Sodium (137-145) mmol/L Potassium (3.5-5.1) mmol/L Chloride (98-107) mmol/L Carbon Dioxide (22-30) mmol/L Anion Gap mmol/L BUN (7-17) mg/dL Creatinine (0.52-1.04) mg/dL Est GFR (CKD-EPI)AfAm (>60 ml/min/1.73 sqM) Est GFR (CKD-EPI)NonAf (>60 ml/min/1.73 sqM) Glucose (74-99) mg/dL Calcium (8.4-10.2) mg/dL Magnesium (1.6-2.3) mg/dL Total Bilirubin (0.2-1.3) mg/dL AST (14-36) U/L ALT (4-34) U/L Alkaline Phosphatase (38-126) U/L Troponin I (0.000-0.034) ng/mL Total Protein (6.3-8.2) g/dL Albumin (3.5-5.0) g/dL TSH (0.465-4.680) mIU/L Urine Color Urine Appearance (Clear) Urine pH (5.0-8.0) Ur Specific [place] (1.001-1.035) Urine Protein (Negative) Urine Glucose (UA) (Negative) Urine Ketones (Negative) Urine Blood (Negative) Urine Nitrite (Negative) Urine Bilirubin (Negative) Urine Urobilinogen (<2.0) mg/dL Ur Leukocyte Esterase (Negative) Urine RBC (0-5) /hpf Urine WBC (0-5) /hpf Ur Squamous Epith Cells (0-4) /hpf Calcium Oxalate Crystal (None) /hpf Urine Bacteria (None) /hpf Urine Mucus (None) /hpf Urine Opiates Screen (NotDetected) Ur Oxycodone Screen (NotDetected) Urine Methadone Screen (NotDetected) Ur Barbiturates Screen (NotDetected) U Tricyclic Antidepress (NotDetected) Ur Phencyclidine Scrn (NotDetected) Ur Amphetamines Screen (NotDetected) U Methamphetamines Scrn (NotDetected) U Benzodiazepines Scrn (NotDetected) Urine Cocaine Screen (NotDetected) U Marijuana (THC) Screen (NotDetected) SARS-CoV-2 (PCR) Not Detected (Not Detectd) Disposition Clinical Impression: Paranoid schizophrenia Disposition: OTHER INSTITUTION NOT DEFINED - Out of Hospital Transfer - Req. Specs Out of Hospital Transfer - Requested Specifics: Other Emergency Center ( admit)
[2025-02-09] MEDS: hydrALAZINE HCL 20 MG/ML 1 ML VIAL IVP STA (23:19)
[2025-02-09 23:20] LABS: Basophils # (A) 0.03 10*3/uL (0.00-0.10); Basophils % (A) 0.5 %; Eosinophils # (A) 0.12 10*3/uL (0.04-0.35); Eosinophils % (A) 2.1 %; HCT 43.7 % (37.2-46.3); HGB 14.5 g/dL (12.0-15.0); Lymphocytes # (A) 1.41 10*3/uL (0.90-5.00); Lymphocytes % (A) 24.1 %; MCHC 33.2 g/dL (32.0-37.0); MCV 87.4 fL (80.0-97.0); Mean Platelet Volume 11.6 fL (9.5-12.2); Monocytes % (A) 8.6 %; Neutrophils # (A) 3.77 10*3/uL (1.80-7.70); Neutrophils % (A) 64.5 %; Platelet Count 233 10*3/uL (140-440); RDW 12.9 % (11.5-14.5); WBC 5.84 10*3/uL (4.50-10.00)
[2025-02-09 23:35] LABS: Appearance,Urine Cloudy (Clear); Bacteria,Urine Occasional /hpf; Bilirubin,Urine Negative (Negative); Blood,Urine Negative (Negative); Calcium Oxalate Crystals,Urine Occasional /hpf; Color,Urine Yellow; Glucose,Urine (UA) Negative (Negative); Ketones,Urine Negative (Negative); Leukocyte Esterase,Urine Small (Negative); Mucus,Urine Rare /hpf; Nitrite,Urine Positive (Negative); Protein,Urine Negative (Negative); RBC,Urine 30 /hpf (0-5); Specific Gravity,Urine 1.018 (1.001-1.035); Squamous Epithelial Cell,Urine 2 /hpf (0-4); WBC,Urine 15 /hpf (0-5)
[2025-02-09 23:37] LABS: ALT 25 U/L (4-34); AST 23 U/L (14-36); African American GFR (CKD) >90 (>60 ml/min/1.73 sqM); Albumin 4.4 g/dL (3.5-5.0); Alkaline Phosphatase 134 U/L (38-126); Anion Gap 7 mmol/L; Blood Urea Nitrogen 8 mg/dL (7-17); Carbon Dioxide 26 mmol/L (22-30); Chloride 105 mmol/L (98-107); Glucose 120 mg/dL (74-99); Non-African American GFR(CKD) >90 (>60 ml/min/1.73 sqM); Potassium 4.2 mmol/L (3.5-5.1); Sodium 138 mmol/L (137-145); Total Bilirubin 0.4 mg/dL (0.2-1.3)
[2025-02-09 23:43] LABS: Amphetamine Screen,Urine Not Detected (NotDetected); Barbiturate Screen,Urine Not Detected (NotDetected); Benzodiazepines Screen,Urine Not Detected (NotDetected); Cocaine Screen,Urine Not Detected (NotDetected); Methadone Screen, Urine Not Detected (NotDetected); Opiate Screen,Urine Not Detected (NotDetected); Oxycodone Screen, Urine Not Detected (NotDetected); Phencyclidine Screen,Urine Not Detected (NotDetected); Tricyclic Antidepressant,Urine Not Detected (NotDetected); Urn Cannabinoid Scrn Detected (NotDetected)
[2025-02-10] MEDS: hydrALAZINE HCL 20 MG/ML 1 ML VIAL IVP STA (01:56)
[2025-02-10] MEDS ORDERED: HALOPERIDOL LACTATE 5 MG/ML 1 ML VIAL IM PRN (04:00)
[2025-02-10] MEDS ORDERED: LORazepam 1 MG TAB PO PRN (04:00)
[2025-02-10] MEDS ORDERED: LORazepam 2 MG/ML INJ IM PRN (04:00)
[2025-02-10] MEDS ORDERED: MAGNESIUM HYDROXIDE 2,400 MG/30 ML CUP PO PRN (04:00)
[2025-02-10] MEDS ORDERED: MAG HYDROX/AL HYDROX/SIMETH 355 ML BOTTLE PO PRN (04:00)
[2025-02-10] MEDS ORDERED: ACETAMINOPHEN TAB 325 MG TAB PO PRN (04:00)
[2025-02-10] MEDS ORDERED: haloperidoL 5 MG TAB PO PRN (04:00)
[2025-02-10] MEDS ORDERED: IBUPROFEN 600 MG TAB PO PRN (04:00)
[2025-02-10] MEDS: NICOTINE 14MG/24HR PATCH TRANSDERM SCH (08:45)
[2025-02-10] MEDS: PALIPERIDONE 6 MG TAB.ER.24 PO SCH (10:32)
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
--- NOTE | 2025-02-11 13:08 | P.PN ---
Progress Note - Text Progress Note Date: 02/11/25 Interval history: Patient was seen wandering the hallways and was directable and agreeable to s peak with insurance underwriter sales. She expressed no concerns, has been tending to her ADLs and bright in affect. She reports sleeping and eating well. She finds the medications helpful for stabilizing her mood. She has not spoken to her cousin and feels this is best given their issues at home. At this time patient denies any suicidal or homicidal ideations intent or plan. Denies any auditory or visual hallucinations. Patient denies any side effects from the medications and has been compliant with meds. Mental status exam: General Appearance: Patient appears to be stated age is alert, directable, and cooperative. She has fair grooming and hygiene Behavior: No agitated behavior. Patient is calm and directable Speech: Patient's speech is fluent and nonpressured. Mood/Affect: Mood is improving mildly, affect is congruent and blunted but reactive Suicidality/Homicidality: Patient denies having any suicidal or homicidal ideation intent or plan. Perceptions: Patient denies any auditory or visual hallucinations. Though content/process: There is no evidence of any delusional thought content and thought process is linear and goal-directed. Memory and concentration: AOX3, grossly intact for the purposes of this session Judgment and insight: improving mildly Assessment/Plan: Continue with current diagnosis. Patient continues to meet criteria for inpatient psychiatric admission for symptom stabilization and safety. Patient will be maintained on current psychotropic medication regimen. Monitor for medication compliance and for any psychotropic medication side effects. Will continue to monitor ongoing response to treatment. Encouraged participation in milieu.
[2025-02-11] MEDS: NITROFURANTOIN MONOHYD/M-CRYST 100 MG CAP PO SCH (20:35)
--- NOTE | 2025-02-12 18:55 | P.PN ---
Progress Note - Text Progress Note Date: 02/12/25 Interval history: Patient was seen resting in bed after dinner and was directable and agreeable to speak with check writer salesperson. She is calm and polite on assessment. She denies any concerns today. She reports sleeping and eating well. She is tolerating her medications. At this time patient denies any suicidal or homicidal ideation, intent or plan. Denies any auditory or visual hallucinations, but some mild thought blocking observed. Patient denies any side effects from the medications and has been com pliant with meds. Mental status exam: General Appearance: Patient appears to be stated age, obese adult female with hirsutism. Fair grooming and hygiene. Dressed in bright Care Bear shirt and tie-dye pants. Behavior: No agitated behavior. Patient is calm and directable Speech: Patient's speech is fluent and non-pressured. Mood/Affect: Mood is improving mildly, affect is congruent Suicidality/Homicidality: Patient denies having any suicidal or homicidal ideation intent or plan. Perceptions: Patient denies any auditory or visual hallucinations. Though content/process: There is no evidence of any delusional thought content. Some mild thought blocking observed. Memory and concentration: AOX3, grossly intact for the purposes of this session Judgment and insight: improving mildly Assessment/Plan: Continue with current diagnosis. Patient continues to meet criteria for inpatient psychiatric admission for symptom stabilization and safety. Patient will be maintained on current psychotropic medication regimen. Monitor for medication compliance and for any psychotropic medication side effects. Will continue to monitor ongoing response to treatment. Encouraged participation in milieu.
--- NOTE | 2025-02-13 00:06 | P.MDCNMH ---
History of Present Illness H&P Date: 02/12/25 49 year old female with chronic medical problems presented for mental health evaluation due to paranoid ideation patient reported some urinary symptoms to the RN , for which UA was done and was positive , patient narvaez snot give any clear answers when asked any question and is hard to understand review of systems limited due to language barrier , patient mumbles incomprehensible words on exam Constitutional: No acute distress, Eyes: Anicteric sclerae, moist conjunctiva, Pupils equal round reactive to light Lungs: Clear to auscultation Clear to percussion Normal respiratory effort, no accessory muscle use Cardiovascular: Heart regular in rate and rhythm, No murmurs, gallops, or rubs No peripheral edema Abdominal: Soft Nontender, no guarding, rebound or rigidity Abdomen moving with respiration Normoactive bowel sounds Extremities: No digital cyanosis No clubbing Pedal pulses intact and symmetrical Radial pulses intact and symmetrical No calf tenderness Psychiatric: Alert and oriented to person, place Neuro Muscles Strength 5/5 in all 4 extremities Sensation to light touch grossly present throughout Cranial nerves II-XII grossly intact Past Medical History Past Medical History: Hypertension History of Any Multi-Drug Resistant Organisms: None Reported Past Surgical History: No Surgical Hx Reported Additional Past Surgical History / Comment(s): Lymph node biopsy. Past Anesthesia/Blood Transfusion Reactions: No Reported Reaction Past Psychological History: Schizophrenia Smoking Status: Current every day smoker Past Alcohol Use History: Rare Past Drug Use History: Marijuana - Past Family History Mother Family Medical History: No Reported History Additional Family Medical History / Comment(s): Pt 2024 Medications and Allergies Home Medications Medication Instructions Recorded Confirmed Type No Known Home Medications 10/27/23 10/27/23 History Allergies Allergy/AdvReac Type Severity Reaction Status Date / Time No Known Allergies Allergy Verified 02/09/25 22:03 Physical Exam Vitals: Vital Signs Temp Pulse Resp BP BP Pulse Ox 02/12/25 21:40 98 F 117 H 16 131/85 98 02/12/25 08:51 97.6 F 124 H 92/59 97 Cranial Nerve Examination - Cranial Nerves Cranial Nerve II- Optic: Intact Cranial Nerve III- Oculomotor: Intact Cranial Nerve IV- Trochlear: Intact Cranial Nerve V- Trigeminal: Intact Cranial Nerve - Abducens: Intact Cranial Nerve VII- Facial: Intact Cranial Nerve VIII- Auditory: Intact Cranial Nerve IX- Glossopharyngeal: Intact Cranial Nerve X- Vagus: Intact Cranial Nerve XI- Accessory: Intact Cranial Nerve XII- Hypoglossal: Intact Results CBC & Chem 7: 02/09/25 23:03 02/09/25 23:03 Assessment and Plan Assessment: simple cystitis UA positive nitrates start on nitrofurantoin 100 mg bid for 5 days paranoid ideation management per psych Obesity CBC, comp metabolic panel , unremarkable thank you for this consultation
--- NOTE | 2025-02-13 09:57 | P.PN ---
Progress Note - Text Progress Note Date: 02/13/25 Interval history: Patient was seen wandering the hallways in her room. She was agreeable to speak to press writer in the office today. Appears to have improvement in hygiene and grooming, claims that she is feeling a bit anxious being on the unit. Claims that her mood has been gradually improving. She is denying any irritability mood swings denying any psychotic symptoms at this time not endorsing any delusions. Was fairly focused on discharge. She appeared to be fairly pleasant during interaction. Claims that she has been taking her medications not reporting any issues. She was minimizing her need for continuing to be in the hospital. Claims that she is going to some groups, eating fairly. Claims that she slept fairly at nighttime. At this time denying any auditory or visual hallucinations denies any suicidal homicidal ideations intent or plan. Mental status exam: General Appearance: Patient appears to be stated age, obese adult female with hirsutism. Fair grooming and hygiene. Dressed in bright Care Bear shirt and sweater. Behavior: No agitated behavior. Patient is calm and directable, somewhat superficial Speech: Patient's speech is fluent and non-pressured. Somewhat concrete Mood/Affect: Mood is improving mildly, affect is congruent Suicidality/Homicidality: Patient denies having any suicidal or homicidal ideation intent or plan. Perceptions: Patient denies any auditory or visual hallucinations. Though content/process: There is no evidence of any delusional thought content. Focused on discharge. Limited, Memory and concentration: AOX3, grossly intact for the purposes of this session Judgment and insight: improving mildly Assessment/Plan: Continue with current diagnosis. Patient continues to meet criteria for inpatient psychiatric admission for symptom stabilization and safety. Patient will be maintained on current psychotropic medication regimen. Monitor for medication compliance and for any psychotropic medication side effects. Will continue to monitor ongoing response to treatment. Encouraged participation in milieu. Will speak with social service worker with regards to any updates from patient's guardian and discharge planning. Hopeful for discharge in 2 to 3 days if patient is improving.
[2025-02-14 08:59] VITALS: RESP 16
--- NOTE | 2025-02-14 10:16 | P.PN ---
Progress Note - Text Progress Note Date: 02/14/25 Interval history: Patient was seen today. She was agreeable to speak to brief writer in the office jay block. Appears to have improvement in hygiene and grooming. She claims that she has been showering, claims that she is doing better today. Appears to be more calm today during interview, states that her anxiety is improving denies any depression today. Not reporting any mood swings. States that she slept fairly last night has been taking her medications. She claims that she is still unsure as to whether she can return back home. Not reporting any side effects at this time. Insight and judgment appear to be improving mildly. Claims that she slept fairly at nighttime. At this time denying any auditory or visual hallucinations denies any suicidal homicidal ideations intent or plan. Mental status exam: General Appearance: Patient appears to be stated age, obese adult female with hirsutism. Fair grooming and hygiene. Dressed in bright Care Bear shirt and sweater. Behavior: No agitated behavior. Patient is calm and directable, somewhat superficial, improving mildly improving mildly Speech: Patient's speech is fluent and non-pressured. Somewhat concrete, improving mildly Mood/Affect: Mood is improving mildly, affect is congruent, improving mildly Suicidality/Homicidality: Patient denies having any suicidal or homicidal ideation intent or plan. Perceptions: Patient denies any auditory or visual hallucinations. Though content/process: There is no evidence of any delusional thought content. Focused on discharge. Limited, Memory and concentration: AOX3, grossly intact for the purposes of this session Judgment and insight: Limited, improving mildly Assessment/Plan: Continue with current diagnosis. Patient continues to meet criteria for inpatient psychiatric admission for symptom stabilization and safety. Patient will be maintained on current psychotropic medication regimen. Monitor for medication compliance and for any psychotropic medication side effects. Will continue to monitor ongoing response to treatment. Encouraged participation in milieu. Will speak with marriage and family social worker with regards to any updates from patient's guardian and discharge planning. Hopeful for discharge tomorrow if patient is improving and if patient can return back home.
[2025-02-15 10:01] VITALS: BP 105/70; PULSE 106; TEMP 97.1
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
[2025-02-15] MEDS: risperiDONE 100 MG/0.28 ML SYR (NO COST) SQ SCH (13:28)
== END 2025-02-15 14:45 | disposition home or self-care (01) | DRG 750 ==
LOC: EC 21:54 → 3MHU 02-10 03:46
PROVIDERS: ADMIT Psychiatry & Neurology Psychiatry; ATTEND Psychiatry & Neurology Psychiatry
DX: F20.0 Paranoid schizophrenia (principal); E66.9 Obesity, unspecified; F17.200 Nicotine dependence, unspecified, uncomplicated; F60.0 Paranoid personality disorder; F79 Unspecified intellectual disabilities; I10 Essential (primary) hypertension; N30.90 Cystitis, unspecified without hematuria; R45.851 Suicidal ideations; Z55.5 Less than a high school diploma; Z63.4 Disappearance and death of family member; Z91.148 Patient's other noncompliance with medication regimen for other reason; Z71.89 Other specified counseling
CPT/HCPCS: 36415; 80053; 80306; 81001; 82075; 83036; 83735; 84443; 84484; 85025; 87077; 87086; 87186; 87635; 93005; 96374; 96376; 99285

== ENCOUNTER 2025-04-07 09:31 | Emergency (ER) | payer OTHER ==
[2025-04-07 10:19] VITALS: BP 152/98; PULSE 95; TEMP 98.3
--- NOTE | 2025-04-07 10:56 | ED ---
General Adult HPI - General Chief complaint: Psychiatric Symptoms Stated complaint: Mental health eval Time Seen by Provider: 04/07/25 09:33 Source: patient, EMS, RN notes reviewed, old records reviewed Mode of arrival: EMS Limitations: no limitations - History of Present Illness Initial comments: 49-year-old female history of schizophrenia presenting for mental health evaluation. Patient denies suicidal or homicidal ideation. Patient had contacted paramedics for transport to the hospital for evaluation by EPS. She also states that her blood pressure has been elevated and she has been awaiting a follow-up with primary care. No chest pain. No dyspnea. No vomiting. No fever. - Related Data Previous Rx's Medication Instructions Recorded Nicotine 14Mg/24Hr Patch [Habitrol] 1 patch TRANSDERM DAILY 14 Days 02/15/25 #14 patch Nitrofurantoin Monohyd/M-Cryst 100 mg PO BID 3 Days #6 cap 02/15/25 [Macrobid] risperiDONE [Uzedy] 100 mg SQ QMONTHLY #1 each 02/15/25 Allergies Allergy/AdvReac Type Severity Reaction Status Date / Time No Known Allergies Allergy Verified 04/07/25 09:53 Review of Systems ROS Statement: Those systems with pertinent positive or pertinent negative responses have been documented in the HPI. ROS Other: All systems not noted in ROS Statement are negative. Past Medical History Past Medical History: Hypertension History of Any Multi-Drug Resistant Organisms: None Reported Past Surgical History: No Surgical Hx Reported Additional Past Surgical History / Comment(s): Lymph node biopsy. Past Anesthesia/Blood Transfusion Reactions: No Reported Reaction Past Psychological History: Schizophrenia Smoking Status: Current every day smoker Past Alcohol Use History: Rare Past Drug Use History: Marijuana - Past Family History Mother Family Medical History: No Reported History Additional Family Medical History / Comment(s): Pt 2024 General Exam General appearance: alert, in no apparent distress Head exam: Present: atraumatic, normocephalic Eye exam: Present: normal appearance, PERRL ENT exam: Present: normal exam Neck exam: Present: normal inspection. Absent: tenderness, meningismus Respiratory exam: Present: normal lung sounds bilaterally. Absent: respiratory distress, wheezes Cardiovascular Exam: Present: regular rate, normal rhythm GI/Abdominal exam: Present: soft. Absent: distended, tenderness, guarding Neurological exam: Present: alert, oriented X3, CN II-XII intact. Absent: motor sensory deficit Psychiatric exam: Present: flat affect. Absent: homicidal ideation, suicidal ideation Skin exam: Present: warm, dry, intact. Absent: cyanosis, diaphoretic Course Vital Signs 04/07/25 09:48 Temperature 98.3 F Pulse Rate 95 Respiratory 18 Rate Blood Pressure 152/98 O2 Sat by Pulse 97 Oximetry Medical Decision Making - Medical Decision Making Was pt. sent in by a medical professional or institution (ORACIO Leo, RECORDS CUSTODIAN, urgent care, hospital, or intermediate...) When possible be specific @ -No Did you speak to anyone other than the patient for history (EMS, parent, family, police, friend...)? What history was obtained from this source @ -No Did you review nursing and triage notes (agree or disagree)? Why? @ -I reviewed and agree with nursing and triage notes Were old charts reviewed (outside hosp., previous admission, EMS record, old EKG, old radiological studies, urgent care reports/EKG's, intermediate records)? Report findings @ -No old charts were reviewed Differential Mental Health Depression, anxiety, bipolar, psychosis, schizophrenia, borderline personality, situational depression, adjustment disorder, behavioral disorder, brain tumor, malingering, substance abuse, encephalopathy, medication reaction, dementia, hypothyroidism, degenerative neurologic disorder, lupus.... This is not meant to be all-inclusive list EKG interpreted by me (3pts min.). @ -As above X-rays interpreted by me (1pt min.). @ -None done CT interpreted by me (1pt min.). @ -None done U/S interpreted by me (1pt. min.). @ -None done What testing was considered but not performed or refused? (CT, X-rays, U/S, labs)? Why? @ -None What meds were considered but not given or refused? Why? @ -None Did you discuss the management of the patient with other professionals (professionals i.e. ORACIO Leo, RECORDS CUSTODIAN, lab, RT, psych nurse, social work supervisor, director of it operations, teacher, staff air tactical officer, watch case polisher)? Give summary @ -No Was smoking cessation discussed for >3mins.? @ -No Was critical care preformed (if so, how long)? @ -No Were there social determinants of health that impacted care today? How? (Homelessness, low income, unemployed, alcoholism, drug addiction, transportation, low edu. Level, literacy, decrease access to med. care, correction, rehab)? @ -No Was there de-escalation of care discussed even if they declined (Discuss DNR or withdrawal of care, Hospice)? DNR status @ -No What co-morbidities impacted this encounter? (DM, HTN, Smoking, COPD, CAD, Cancer, CVA, ARF, Chemo, Hep., AIDS, mental health diagnosis, sleep apnea, morbid obesity)? @ -Schizophrenia, hypertension Was patient admitted / discharged? Hospital course, mention meds given and route, prescriptions, significant lab abnormalities, going to OR and other pertinent info. @ -Patient medically cleared and evaluated by EPS, felt to be safe for discharge. Undiagnosed new problem with uncertain prognosis? @ -No Drug Therapy requiring intensive monitoring for toxicity (Heparin, Nitro, Insulin, Cardizem)? @ -No Were any procedures done? @ -No Diagnosis/symptom? @ -[Schizophrenia elevated blood pressure Acute, or Chronic, or Acute on Chronic? @ -Chronic Uncomplicated (without systemic symptoms) or Complicated (systemic symptoms)? @ -Default Side effects of treatment? @ -No Exacerbation, Progression, or Severe Exacerbation? @ -No Poses a threat to life or bodily function? How? (Chest pain, [place], [place], pneumonia, PE, COPD, DKA, ARF, appy, cholecystitis, CVA, Diverticulitis, Homicidal, Suicidal, threat to staff... and all critical care pts) @ -No Disposition Clinical Impression: Schizophrenia Disposition: HOME SELF-CARE Condition: Fair Instructions (If sedation given, give patient instructions): Schizophrenia (ED) Is patient prescribed a controlled substance at d/c from ED?: No Referrals: None,Stated [Primary Care Provider] - 1-[address] [facility] [NON-STAFF] - 1-2 days Dougie Floyd MD [STAFF PHYSICIAN] - 1-2 days Time of Disposition: 11:47
[2025-04-07 11:55] VITALS: RESP 16
== END 2025-04-07 12:02 | disposition home or self-care (01) ==
LOC: EEVIPCON 09:31 → EC 09:31
DX: F20.9 Schizophrenia, unspecified (principal); I10 Essential (primary) hypertension; F17.200 Nicotine dependence, unspecified, uncomplicated
CPT/HCPCS: 82075; 99284

== ENCOUNTER 2025-04-12 16:09 | Emergency (ER) | payer OTHER ==
[2025-04-12 16:25] VITALS: TEMP 98.5
--- NOTE | 2025-04-12 17:34 | XR ---
EXAMINATION TYPE: XR chest 2V DATE OF EXAM: 04/12/2025 5:27 PM COMPARISON: None TECHNIQUE: XR chest 2V Frontal and lateral views of the chest. CLINICAL INDICATION:Female, 49 years old with history of Chest Pain; FINDINGS: Lungs/Pleura: There is no evidence of pleural effusion, focal consolidation, or pneumothorax. Pulmonary vascularity: Unremarkable. Heart/mediastinum: Cardiomediastinal silhouette is unremarkable. Musculoskeletal: No acute osseous pathology. IMPRESSION: No acute cardiopulmonary disease/process. [facility] James, , 04/12/2025 5:31 PM
--- NOTE | 2025-04-12 17:45 | ED ---
General Adult HPI - General Chief complaint: Recheck/Abnormal Lab/Rx Stated complaint: Hypertension Time Seen by Provider: 04/12/25 16:26 Source: patient, EMS, RN notes reviewed, old records reviewed Mode of arrival: EMS Limitations: no limitations - History of Present Illness Initial comments: 49-year-old female presenting for evaluation of elevated blood pressure. Patient has been taking her blood pressure at home and noted that it has been elevated. Patient has not seen her primary care provider regarding this. Patient denies any physical complaints. She had reported to paramedics that there was chest pain but she completely denies any chest pain for me. No difficulty breathing. No lower extremity pain or swelling. No fever. No cough. No vomiting - Related Data Home Medications Medication Instructions Recorded Confirmed ARIPiprazole [Abilify] 5 mg PO DIRECTED 04/12/25 04/12/25 Escitalopram [Lexapro] 5 mg PO DIRECTED 04/12/25 04/12/25 risperiDONE [Uzedy] 100 mg SQ Q28D 04/12/25 04/12/25 Previous Rx's Medication Instructions Recorded amLODIPine [Norvasc] 2.5 mg PO DAILY 30 Days #30 tablet 04/12/25 Allergies Allergy/AdvReac Type Severity Reaction Status Date / Time No Known Allergies Allergy Verified 04/12/25 18:48 Review of Systems ROS Statement: Those systems with pertinent positive or pertinent negative responses have been documented in the HPI. ROS Other: All systems not noted in ROS Statement are negative. Past Medical History Past Medical History: Hypertension History of Any Multi-Drug Resistant Organisms: None Reported Past Surgical History: No Surgical Hx Reported Additional Past Surgical History / Comment(s): Lymph node biopsy. Past Anesthesia/Blood Transfusion Reactions: No Reported Reaction Past Psychological History: Schizophrenia Smoking Status: Current every day smoker Past Alcohol Use History: None Reported Past Drug Use History: None Reported - Past Family History Mother Family Medical History: No Reported History Additional Family Medical History / Comment(s): Pt 2024 General Exam Limitations: no limitations General appearance: alert, in no apparent distress Head exam: Present: atraumatic, normocephalic Eye exam: Present: normal appearance, PERRL ENT exam: Present: normal exam Neck exam: Present: normal inspection Respiratory exam: Present: normal lung sounds bilaterally. Absent: respiratory distress, wheezes Cardiovascular Exam: Present: regular rate, normal rhythm GI/Abdominal exam: Present: soft. Absent: distended, tenderness Extremities exam: Present: normal inspection Neurological exam: Present: alert, oriented X3, CN II-XII intact. Absent: motor sensory deficit Psychiatric exam: Present: flat affect Skin exam: Present: warm, dry, intact Course Vital Signs 04/12/25 04/12/25 04/12/25 16:17 17:25 18:27 Temperature 98.5 F Pulse Rate 92 97 91 Respiratory 17 17 16 Rate Blood Pressure 153/86 163/93 145/79 O2 Sat by Pulse 99 98 95 Oximetry Medical Decision Making - Medical Decision Making Was pt. sent in by a medical professional or institution (, PA, [employer], urgent care, hospital, or longterm...) When possible be specific @ -No Did you speak to anyone other than the patient for history (EMS, parent, family, police, friend...)? What history was obtained from this source @ -No Did you review nursing and triage notes (agree or disagree)? Why? @ -I reviewed and agree with nursing and triage notes Were old charts reviewed (outside hosp., previous admission, EMS record, old EKG, old radiological studies, urgent care reports/EKG's, longterm records)? Report findings @ -No old charts were reviewed Differential Diagnosis asymptomatic hypertension EKG interpreted by me (3, hypertensive urgency, hypertensive emergencypts min.). @ -Sinus rhythm incomplete right bundle branch block rate of 80, NM interval rate of 108, QRS duration 92, QTc 416 X-rays interpreted by me (1pt min.). @Chest x-ray is negative for acute cardiopulmonary findings CT interpreted by me (1pt min.). @ -None done U/S interpreted by me (1pt. min.). @ -None done What testing was considered but not performed or refused? (CT, X-rays, U/S, labs)? Why? @ -None What meds were considered but not given or refused? Why? @ -None Did you discuss the management of the patient with other professionals (professionals i.e. , [facility], [employer], lab, RT, psych nurse, social work msw, head loft worker, teacher, program officer, case management associate)? Give summary @ -No Was smoking cessation discussed for >3mins.? @ -No Was critical care preformed (if so, how long)? @ -No Were there social determinants of health that impacted care today? How? (Homelessness, low income, unemployed, alcoholism, drug addiction, transportation, low edu. Level, literacy, decrease access to med. care, custodial, rehab)? @ -No Was there de-escalation of care discussed even if they declined (Discuss DNR or withdrawal of care, Hospice)? DNR status @ -No What co-morbidities impacted this encounter? (DM, HTN, Smoking, COPD, CAD, Cancer, CVA, ARF, Chemo, Hep., AIDS, mental health diagnosis, sleep apnea, morbid obesity)? @ -[Schizophrenia Was patient admitted / discharged? Hospital course, mention meds given and route, prescriptions, significant lab abnormalities, going to OR and other pertinent info. @ -49-year-old female has been monitoring her blood pressure at home and this has been noted to be elevated. She has had several readings in the emergency department that were mildly elevated. I did perform chest x-ray, EKG, laboratory testing this is unremarkable. Patient does not currently have a primary care provider. Given a month supply of amlodipine and instructed to continue to monitor blood pressure closely and follow-up with a primary care provider. Undiagnosed new problem with uncertain prognosis? @ -[No Drug Therapy requiring intensive monitoring for toxicity (Heparin, Nitro, Insulin, Cardizem)? @ -No Were any procedures done? @ -No Diagnosis/symptom? @Asymptomatic hypertension Acute, or Chronic, or Acute on Chronic? @Acute Uncomplicated (without systemic symptoms) or Complicated (systemic symptoms)? @ -Default Side effects of treatment? @ -No Exacerbation, Progression, or Severe Exacerbation? @ -No Poses a threat to life or bodily function? How? (Chest pain, [place], [place], pneumonia, PE, COPD, DKA, ARF, appy, cholecystitis, CVA, Diverticulitis, Homicidal, Suicidal, threat to staff... and all critical care pts) @Low risk - Lab Data Result diagrams: 04/12/25 16:27 04/12/25 16:27 Lab Results 04/12/25 04/12/25 04/12/25 Range/Units 16:27 16: 16:27 WBC 6.77 (4.50-10.00) 10*3/uL RBC 4.75 (4.10-5.20) 10*6/uL Hgb 13.6 (12.0-15.0) g/dL Hct 41.4 (37.2-46.3) % MCV 87.2 (80.0-97.0) fL MCH 28.6 (27.0-32.0) pg MCHC 32.9 (32.0-37.0) g/dL Plt Count 189 (140-440) 10*3/uL MPV 11.9 (9.5-12.2) fL Immature Gran % (Auto) 0.3 % Neutrophils % 75.7 % Lymphocytes % 17.6 % Monocytes % 6.1 % Eosinophils % 0.0 % Basophils % 0.3 % Immature Gran # 0.02 (0.00-0.04) 10*3/uL Neutrophils # 5.13 (1.80-7.70) 10*3/uL Lymphocytes # 1.19 (0.90-5.00) 10*3/uL Monocytes # 0.41 (0.20-1.00) 10*3/uL Eosinophils # 0.00 L (0.04-0.35) 10*3/uL Basophils # 0.02 (0.00-0.10) 10*3/uL PT 10.9 (10.0-12.5) sec INR 1.0 (<1.2) APTT 20.8 L (22.0-30.0) sec Sodium 140 (137-145) mmol/L Potassium 4.0 (3.5-5.1) mmol/L Chloride 107 (98-107) mmol/L Carbon Dioxide 20 L (22-30) mmol/L Anion Gap 13 mmol/L BUN 13 (7-17) mg/dL Creatinine 0.54 (0.52-1.04) mg/dL Est GFR (CKD-EPI)AfAm >90 (>60 ml/min/1.73 sqM) Est GFR (CKD-EPI)NonAf >90 (>60 ml/min/1.73 sqM) Glucose 91 (74-99) mg/dL Calcium 9.3 (8.4-10.2) mg/dL Magnesium 2.0 (1.6-2.3) mg/dL Total Bilirubin 0.7 (0.2-1.3) mg/dL AST 33 (14-36) U/L ALT 30 (4-34) U/L Alkaline Phosphatase 79 (38-126) U/L Troponin I (0.000-0.034) ng/mL Total Protein 6.8 (6.3-8.2) g/dL Albumin 4.3 (3.5-5.0) g/dL 04/12/25 Range/Units 16:27 WBC (4.50-10.00) 10*3/uL RBC (4.10-5.20) 10*6/uL Hgb (12.0-15.0) g/dL Hct (37.2-46.3) % MCV (80.0-97.0) fL MCH (27.0-32.0) pg MCHC (32.0-37.0) g/dL Plt Count (140-440) 10*3/uL MPV (9.5-12.2) fL Immature Gran % (Auto) % Neutrophils % % Lymphocytes % % Monocytes % % Eosinophils % % Basophils % % Immature Gran # (0.00-0.04) 10*3/uL Neutrophils # (1.80-7.70) 10*3/uL Lymphocytes # (0.90-5.00) 10*3/uL Monocytes # (0.20-1.00) 10*3/uL Eosinophils # (0.04-0.35) 10*3/uL Basophils # (0.00-0.10) 10*3/uL PT (10.0-12.5) sec INR (<1.2) APTT (22.0-30.0) sec Sodium (137-145) mmol/L Potassium (3.5-5.1) mmol/L Chloride (98-107) mmol/L Carbon Dioxide (22-30) mmol/L Anion Gap mmol/L BUN (7-17) mg/dL Creatinine (0.52-1.04) mg/dL Est GFR (CKD-EPI)AfAm (>60 ml/min/1.73 sqM) Est GFR (CKD-EPI)NonAf (>60 ml/min/1.73 sqM) Glucose (74-99) mg/dL Calcium (8.4-10.2) mg/dL Magnesium (1.6-2.3) mg/dL Total Bilirubin (0.2-1.3) mg/dL AST (14-36) U/L ALT (4-34) U/L Alkaline Phosphatase (38-126) U/L Troponin I <0.012 (0.000-0.034) ng/mL Total Protein (6.3-8.2) g/dL Albumin (3.5-5.0) g/dL Disposition Clinical Impression: Hypertension Disposition: HOME SELF-CARE Condition: Fair Instructions (If sedation given, give patient instructions): Hypertension (ED) Prescriptions: amLODIPine [Norvasc] 2.5 mg PO DAILY 30 Days #30 tablet Is patient prescribed a controlled substance at d/c from ED?: No Referrals: None,Stated [Primary Care Provider] - 1-2 days [facility] [NON-STAFF] - 1-2 days Time of Disposition: 18:55
[2025-04-12 17:56] LABS: Basophils # (A) 0.02 10*3/uL (0.00-0.10); Basophils % (A) 0.3 %; Eosinophils # (A) 0.00 10*3/uL (0.04-0.35); Eosinophils % (A) 0.0 %; HCT 41.4 % (37.2-46.3); HGB 13.6 g/dL (12.0-15.0); Lymphocytes # (A) 1.19 10*3/uL (0.90-5.00); Lymphocytes % (A) 17.6 %; MCH 28.6 pg (27.0-32.0); MCHC 32.9 g/dL (32.0-37.0); MCV 87.2 fL (80.0-97.0); Monocytes # (A) 0.41 10*3/uL (0.20-1.00); Monocytes % (A) 6.1 %; Neutrophils # (A) 5.13 10*3/uL (1.80-7.70); Neutrophils % (A) 75.7 %; Platelet Count 189 10*3/uL (140-440); RBC 4.75 10*6/uL (4.10-5.20); RDW 14.4 % (11.5-14.5); WBC 6.77 10*3/uL (4.50-10.00)
[2025-04-12 18:19] LABS: ALT 30 U/L (4-34); African American GFR (CKD) >90 (>60 ml/min/1.73 sqM); Anion Gap 13 mmol/L; Blood Urea Nitrogen 13 mg/dL (7-17); Calcium 9.3 mg/dL (8.4-10.2); Carbon Dioxide 20 mmol/L (22-30); Chloride 107 mmol/L (98-107); Glucose 91 mg/dL (74-99); Non-African American GFR(CKD) >90 (>60 ml/min/1.73 sqM); Sodium 140 mmol/L (137-145)
[2025-04-12 18:22] LABS: INR 1.0 (<1.2); Partial Thromboplastin Time 20.8 sec (22.0-30.0); Prothrombin Time 10.9 sec (10.0-12.5)
[2025-04-12 18:47] LABS: AST 33 U/L (14-36); Albumin 4.3 g/dL (3.5-5.0); Alkaline Phosphatase 79 U/L (38-126); Magnesium 2.0 mg/dL (1.6-2.3); Potassium 4.0 mmol/L (3.5-5.1); Total Protein 6.8 g/dL (6.3-8.2)
[2025-04-12 19:18] VITALS: BP 130/76; PULSE 96; RESP 18
== END 2025-04-12 19:17 | disposition home or self-care (01) ==
LOC: EC 16:09
DX: I10 Essential (primary) hypertension (principal); F20.9 Schizophrenia, unspecified; F17.200 Nicotine dependence, unspecified, uncomplicated
CPT/HCPCS: 36415; 71046; 80053; 83735; 84484; 85025; 85610; 85730; 93005; 99284

== ENCOUNTER 2025-05-04 14:47 | Emergency (ER) | payer OTHER ==
[2025-05-04 14:59] VITALS: TEMP 97.8
--- NOTE | 2025-05-04 15:26 | ED ---
Psych HPI - General Chief Complaint: Psychiatric Symptoms Stated Complaint: Mental Health Eval. Time Seen by Provider: 05/04/25 15:06 Source: patient Mode of arrival: ambulatory - History of Present Illness Initial Comments: This patient is a 49-year-old woman who arrives to have evaluation and treatment related to delusional thought content. The patient has a cousin who is present and states that for decades the patient has had symptoms that she describes as consistent with autism, self isolates, and has described delusional thought content including that she has been affected by zoroastrianism and witchcraft. When I interviewed the patient, she does admit to thinking that she has been affected by zoroastrianism. Patient denies homicidal or suicidal ideation. MD Complaint: other -: year(s) Associated Psychiatric Symptoms: racing thoughts, delusions History of same: Yes Quality: constant Improves With: none Worsens With: none Associated Symptoms: denies other symptoms - Related Data Home Medications Medication Instructions Recorded Confirmed ARIPiprazole [Abilify] 5 mg PO DIRECTED 04/12/25 04/12/25 Escitalopram [Lexapro] 5 mg PO DIRECTED 04/12/25 04/12/25 risperiDONE [Uzedy] 100 mg SQ Q28D 04/12/25 04/12/25 Previous Rx's Medication Instructions Recorded amLODIPine [Norvasc] 2.5 mg PO DAILY 30 Days #30 tablet 04/12/25 Allergies Allergy/AdvReac Type Severity Reaction Status Date / Time No Known Allergies Allergy Verified 05/04/25 14:58 Review of Systems ROS Statement: Those systems with pertinent positive or pertinent negative responses have been documented in the HPI. ROS Other: All systems not noted in ROS Statement are negative. Constitutional: Denies: fever, chills Eyes: Denies: vision change Respiratory: Denies: cough, dyspnea Cardiovascular: Denies: chest pain, palpitations Gastrointestinal: Denies: abdominal pain, vomiting, diarrhea Genitourinary: Denies: dysuria, hematuria Musculoskeletal: Denies: back pain Neurological: Denies: headache Psychiatric: Denies: depression, homicidal thoughts, suicidal thoughts Past Medical History Past Medical History: Hypertension History of Any Multi-Drug Resistant Organisms: None Reported Past Surgical History: No Surgical Hx Reported Additional Past Surgical History / Comment(s): Lymph node biopsy. Past Anesthesia/Blood Transfusion Reactions: No Reported Reaction Past Psychological History: Schizophrenia Smoking Status: Current every day smoker Past Alcohol Use History: None Reported Past Drug Use History: None Reported - Past Family History Mother Family Medical History: No Reported History Additional Family Medical History / Comment(s): Pt 2024 General Exam Limitations: no limitations General appearance: alert, in no apparent distress Head exam: Present: atraumatic, normocephalic Eye exam: Present: normal appearance. Absent: scleral icterus, conjunctival injection ENT exam: Present: normal oropharynx Neck exam: Present: normal inspection, full ROM Respiratory exam: Present: normal lung sounds bilaterally. Absent: respiratory distress, wheezes, rales, rhonchi, stridor, accessory muscle use Cardiovascular Exam: Present: regular rate, normal rhythm, normal heart sounds. Absent: systolic murmur, diastolic murmur, rubs, gallop GI/Abdominal exam: Present: soft. Absent: distended, tenderness, guarding, rebound, rigid, mass Extremities exam: Present: normal inspection, normal capillary refill Back exam: Present: normal inspection Neurological exam: Present: alert Psychiatric exam: Absent: depressed, agitated, homicidal ideation, suicidal ideation Skin exam: Present: warm, dry, intact, normal color. Absent: rash Course Vital Signs 05/04/25 14:54 Temperature 97.8 F Pulse Rate 87 Respiratory 16 Rate Blood Pressure 152/89 O2 Sat by Pulse 97 Oximetry Medical Decision Making - Medical Decision Making Was pt. sent in by a medical professional or institution ([facility], [facility] [facility], urgent care, hospital, or residential...) When possible be specific @ -[No] Did you speak to anyone other than the patient for history (EMS, parent, family, police, friend...)? What history was obtained from this source @ -[No] Did you review nursing and triage notes (agree or disagree)? Why? @ -[I reviewed and agree with nursing and triage notes] Were old charts reviewed (outside hosp., previous admission, EMS record, old EKG, old radiological studies, urgent care reports/EKG's, residential records)? Report findings @ -[No old charts were reviewed] Differential Diagnosis (chest pain, altered mental status, abdominal pain women, abdominal pain men, vaginal bleeding, weakness, fever, dyspnea, syncope, headache, dizziness, GI bleed, back pain, seizure, CVA, palpatations, mental health, musculoskeletal)? @ -[Differential Mental Health Depression, anxiety, bipolar, psychosis, schizophrenia, borderline personality, situational depression, adjustment disorder, behavioral disorder, brain tumor, malingering, substance abuse, encephalopathy, medication reaction, dementia, hypothyroidism, degenerative neurologic disorder, lupus.... This is not meant to be all-inclusive list EKG interpreted by me (3pts min.). @ -[As above] X-rays interpreted by me (1pt min.). @ -[None done] CT interpreted by me (1pt min.). @ -[None done] U/S interpreted by me (1pt. min.). @ -[None done] What testing was considered but not performed or refused? (CT, X-rays, U/S, labs)? Why? @ -[None] What meds were considered but not given or refused? Why? @ -[None] Did you discuss the management of the patient with other professionals (professionals i.e. , PA, [employer], lab, RT, psych nurse, social services designee, rail bonder, teacher, anti air warfare operations officer, director of casework)? Give summary @ -[Case discussed with EPS personnel. The patient was seen by them and discussed with the psychiatrist. Patient stable to continue as outpatient, they have devised safety plan. Was smoking cessation discussed for >3mins.? @ -[No] Was critical care preformed (if so, how long)? @ -[No] Were there social determinants of health that impacted care today? How? (Homelessness, low income, unemployed, alcoholism, drug addiction, transportation, low edu. Level, literacy, decrease access to med. care, senior care, rehab)? @ -[No] Was there de-escalation of care discussed even if they declined (Discuss DNR or withdrawal of care, Hospice)? DNR status @ -[No] What co-morbidities impacted this encounter? (DM, HTN, Smoking, COPD, CAD, Cancer, CVA, ARF, Chemo, Hep., AIDS, mental health diagnosis, sleep apnea, morbid obesity)? @ -[History of previous psychiatric conditions Was patient admitted / discharged? Hospital course, mention meds given and route, prescriptions, significant lab abnormalities, going to OR and other pertinent info. @ -[As above Undiagnosed new problem with uncertain prognosis? @ -[No] Drug Therapy requiring intensive monitoring for toxicity (Heparin, Nitro, Insulin, Cardizem)? @ -[No] Were any procedures done? @ -[No] Diagnosis/symptom? @ -[Delusional thought content History of schizophrenia Acute, or Chronic, or Acute on Chronic? @ -[Acute on chronic Uncomplicated (without systemic symptoms) or Complicated (systemic symptoms)? @ -[Uncomplicated Side effects of treatment? @ -[No] Exacerbation, Progression, or Severe Exacerbation? @ -[No] Poses a threat to life or bodily function? How? (Chest pain, [place], [place], pneumonia, PE, COPD, DKA, ARF, appy, cholecystitis, CVA, Diverticulitis, Homicidal, Suicidal, threat to staff... and all critical care pts) @ -[No] All treatments are based on ideal body weight as in ED triage Disposition Clinical Impression: Delusions, Anxiety Disposition: HOME SELF-CARE Condition: Good Instructions (If sedation given, give patient instructions): Psychotic Disorder (ED) Is patient prescribed a controlled substance at d/c from ED?: No Referrals: None,Stated [Primary Care Provider] - 1-2 days
[2025-05-04] MEDS: hydrOXYzine HCL 25 MG TAB PO STA (17:38)
[2025-05-04 17:45] VITALS: BP 146/84; PULSE 78; RESP 17
== END 2025-05-04 17:51 | disposition home or self-care (01) ==
LOC: EC 14:47
DX: F22 Delusional disorders (principal); F41.9 Anxiety disorder, unspecified; F17.200 Nicotine dependence, unspecified, uncomplicated
CPT/HCPCS: 82075; 99284